=== PATIENT | male | born 1955 | race Caucasian/White ===

== ENCOUNTER 2023-11-29 12:29 | Inpatient (IN) ==
[2023-11-29 13:36] LABS: Basophils # (auto) 0.03 K/uL (0.00-0.20); Basophils % (auto) 0.5 %; Eosinophils # (auto) 0.14 K/uL (0.00-0.50); Eosinophils % (auto) 2.4 %; Hematocrit (blood only) 46.8 % (42.0-52.0); Hemoglobin 15.6 g/dl (14.0-18.0); Immature Granulocytes # (auto) 0.01 K/uL (0.01-0.20); Immature Granulocytes % (auto) 0.2 %; Lymphocytes # (auto) 1.46 K/uL (1.20-3.40); Lymphocytes % (auto) 25.1 %; Mean Corpuscular Hemoglobin 30.9 pg (25.0-34.0); Mean Corpuscular Hgb Conc 33.3 g/dL (32.0-36.0); Mean Corpuscular Volume 92.7 fL (80.0-100.0); Monocytes # (auto) 0.49 K/uL (0.11-0.59); Monocytes % (auto) 8.4 %; Neutrophils # (auto) 3.68 K/uL (1.40-6.50); Neutrophils % (auto) 63.4 %; Platelet Count 226 K/uL (130-400); RDW Coefficient of Variation 12.9 % (11.5-14.5); RDW Standard Deviation 43.7 fL (36.4-46.3); Red Blood Count 5.05 M/uL (4.70-6.10); White Blood Count 5.81 K/ul (4.8-10.8)
--- NOTE | 2023-11-29 13:49 | XRay Report ---
SINGLE VIEW CHEST CLINICAL HISTORY: Atypical chest pain. FINDINGS: 2 AP, portable, upright chest radiographs are compared to study dated 01/01/2021. The heart i s top normal for projection. There is mild bibasilar atelectasis. Scattered calcified granulomas are observed. The lungs and pleural spaces are otherwise clear. No pneumothorax is seen. The skeletal str uctures are osteopenic. Chronic deformity of the right proximal humerus is unchanged. IMPRESSION: No active disease in the chest. ACT 112: Negative or not required by law. Electronically signed by: Ashvin Aguayo M.D. 11/29/2023 1:48 PM
[2023-11-29 13:53] LABS: BUN Creatinine Ratio 14.4 (10-20); Calcium 9.7 mg/dl (8.6-10.3); Creatinine Clr Calc Pharmacy 86.5 ml/min; Est GFR (African American) 102.1 ml/min; Est GFR (Non-African American) 88.1 ml/min
[2023-11-29 14:00] LABS: Troponin I High Sensitivity 3.2 pg/ml (0-20)
[2023-11-29 14:04] LABS: D Dimer 340 ug/L FEU (0-500); Partial Thromboplastin Time 28 Seconds (21-31); Prothrombin Time 10.8 Seconds (9.0-12.0)
--- NOTE | 2023-11-29 14:32 | CT Scan Report ---
CT head/brain wo con CLINICAL HISTORY: syncope Technique: Contiguous axial CT images of the head were acquired from the base of the skull to the ashok malena without intravenous contrast administration. Images were viewed in brain, subdural and bone [facility] . Automated dose lowering techniques and/or adjustment according to patient size were utilized for this exam. Comparison: Comparison is made to CT head 10/03/2019 Findings: Areas of decreased attenuation are present in the periventricular and subcortical white matter bilate rally consistent with small vessel ischemic disease. Generalized cerebral atrophy with commensurate e nlargement of the ventricles, sulci, and cisterns is also present. There is no acute intracranial hem orrhage or evidence of acute territorial infarction. No shift of the midline structures, mass effect, or extra-axial abnormalities are shown. Atherosclerotic calcifications are present in the intracran ial segments of the internal carotid arteries. Imaged portions of the paranasal sinuses and mastoid air cells are clear. The orbits appear normal. There are no acute fractures of the calvaria or scalp swelling. Impression: No acute intracranial hemorrhage, no evidence of acute territorial infarction or other acute intracra nial disease process. ACT 112: Negative or not required by law. Electronically signed by: Edison Rick M.D. 11/29/2023 2:30 PM
--- NOTE | 2023-11-29 15:05 | Electrocardiogram Report ---
Test Reason : Blood Pressure : / mmHG Vent. Rate : 080 BPM Atrial Rate : 080 BPM P-R Int : 186 ms QRS Dur : 086 ms QT Int : 354 ms P-R-T Axes : 050 046 050 degrees QTc Int : 408 ms Normal sinus rhythm Normal ECG When compared with ECG of 01-JAN-2021 15:33, No significant change was found Confirmed by Luis Fernando Collier ([id number]) on 11/29/2023 3:05:20 PM Referred By: Confirmed By:Luis Fernando Collier
--- NOTE | 2023-11-29 18:54 | Emergency Department Note ---
History of Present Illness General Chief complaint: Dizziness Stated complaint: DIZZY/PASSING OUT/CHEST PAIN - NUMBNESS IN LEGS Time Seen by Provider: 11/29/23 13:08 History of Present Illness Provider complaint: Syncope Onset (ago): day(s) 4 Maximum Pain Intensity: 0 Associated symptoms: + chest pain, + cough, + shortness of breath and + syncope 68-year-old male presents emergency department for syncope. Patient reports that he has been having a bad cough and he has been coughing so bad since Sunday he has passed out 3 times. He reports some chest tightness and some difficulty breathing. Patient states he thinks his symptoms began after he was diagnosed with COVID in September. No recent travel. No exogenous hormone usage. No hemoptysis. No headache. No nausea vomiting or diarrhea. No melena or hematochezia. No hematuria or dysuria. Home Medications Medication Instructions Recorded Confirmed Type aspirin 81 mg tablet,delayed 81 mg PO QAM 09/22/19 11/29/23 History release vitamins A,C,C-lnjm-rzuicy 4,296 2 cap PO QAM 09/22/19 11/29/23 History mcg-226 mg-90 mg capsule (PreserVision AREDS) losartan 100 mg tablet (Cozaar) 50 mg PO QAM 01/01/21 11/29/23 History cholecalciferol (vitamin D3) 25 25 mcg PO QAM 01/05/23 11/29/23 History mcg (1,000 unit) capsule (Vitamin D3) cyanocobalamin (vitamin B-12) 50 50 mcg PO QAM 01/05/23 11/29/23 History mcg tablet (Vitamin B-12) omega-3 fatty acids 1,250 mg PO QAM 01/05/23 11/29/23 History rosuvastatin 10 mg tablet 10 mg PO QAM 01/05/23 11/29/23 History tamsulosin 0.4 mg capsule 0.4 mg PO HS 01/05/23 11/29/23 History omeprazole 20 mg capsule,delayed 20 mg PO DAILY #90 caps 01/11/23 11/29/23 Rx release cetirizine 10 mg tablet 10 mg PO QAM 11/29/23 11/29/23 History fluticasone 250 mcg-salmeterol 50 1 inh inhalation [facility] 11/29/23 11/29/23 History mcg/dose blistr powdr for inhalation Allergies Allergy/AdvReac Type Severity Reaction Status Date / Time No Known Allergies Allergy Verified 01/11/23 09:26 Past Med/Surg History Medical History History of COVID-19 11/2020, test q-care, not hosp; "couldn't get off the couch,">resolved w/exception of mucous in throat all the time History of anesthesia reaction questionable malignant hpyerthermia was told cousin had coded and revived and was told it might be malignant hyperthermia and family did not have testing. patient has had anesthesia and has not had any problems. Last procedure was with [facility] Herniated cervical disc ROM "up and down is ok, but turning side to side is difficult" Osteoarthritis GERD (gastroesophageal reflux disease) Depression Anxiety Hypertension Kidney stone hx-LITHOTRIPSY Surgical History Hx of lithotripsy Hx of colonoscopy Hx of tonsillectomy Family History Other No significant family history Social History Smoking Status: Never smoker Tobacco Type: Smokeless Tobacco (Dip or Chew) Second Hand Exposure: No; Do You Dip or Chew Tobacco: Yes (1 can/day; advised); Hx Alcohol Use: Yes Alcohol type: beer Hx Substance Use: No Preferred Language: Estonian Communication Ability: Effective Glazier Artist Required: No Beliefs That Will Affect Care: None Current Living Situation: Spouse and Family Feels Safe at Home: Yes Assistive Devices: Glasses Physical Exam Vital Signs Vital Signs - 24 hr 11/29/23 12:33 11/29/23 12:46 11/29/23 13:09 Temperature 36.1 C L Temperature Source Temporal Artery Scan Pulse Rate 83 80 Pulse Rate [Apical] Pulse Rhythm Regular Pulse Strength Normal Respiratory Rate 20 Respiratory Effort / Characteristics Non-Labored Spontaneous Respiratory Depth Normal Respiratory Pattern Regular Blood Pressure 146/93 H Blood Pressure [Left Arm] Blood Pressure Mean 110 Blood Pressure Mean [Left Arm] Blood Pressure Position Sitting Pulse Oximetry 96 Oxygen Delivery Method Room Air Room Air Sepsis Recent Fever Within 48 Hours No Sepsis New/Unexplained Change in Mental Status No Sepsis Action Taken by Nursing No Action Required 11/29/23 13:09 11/29/23 15:00 11/29/23 16:41 Temperature Temperature Source Pulse Rate 75 Pulse Rate [Apical] 96 H 72 Pulse Rhythm Pulse Strength Respiratory Rate 16 18 Respiratory Effort / Characteristics Non-Labored Respiratory Depth Normal Respiratory Pattern Blood Pressure Blood Pressure [Left Arm] 150/98 H 130/82 Blood Pressure Mean Blood Pressure Mean [Left Arm] 115 98 Blood Pressure Position Pulse Oximetry 95 99 Oxygen Delivery Method Room Air Sepsis Recent Fever Within 48 Hours Sepsis New/Unexplained Change in Mental Status Sepsis Action Taken by Nursing 11/29/23 17:00 Temperature Temperature Source Pulse Rate Pulse Rate [Apical] 77 Pulse Rhythm Pulse Strength Respiratory Rate 18 Respiratory Effort / Characteristics Respiratory Depth Normal Respiratory Pattern Blood Pressure Blood Pressure [Left Arm] 124/84 Blood Pressure Mean Blood Pressure Mean [Left Arm] 97 Blood Pressure Position Pulse Oximetry 97 Oxygen Delivery Method Sepsis Recent Fever Within 48 Hours Sepsis New/Unexplained Change in Mental Status Sepsis Action Taken by Nursing Physical Exam GENERAL: He is oriented to person, place, and time. He appears well-developed and well-nourished. He does not appear distressed. HENT: Exam performed. - Head: Normocephalic and atraumatic. - Right Ear: External ear normal. No mastoid erythema - Left Ear: External ear normal. No mastoid erythema - Mouth/Throat: The oropharynx is clear and moist. No trismus in the jaw. No dental abscesses or uvula swelling. No oropharyngeal exudate or tonsillar abscesses. EYES: Conjunctivae and EOM are normal. Pupils are equal, round, and reactive to light. Right eye exhibits no discharge. Left eye exhibits no discharge. No scleral icterus. NECK: Normal range of motion. Neck supple. No JVD present. No spinous process tenderness present. No rigidity. No tracheal deviation and normal range of motion present. CV: Normal rate, regular rhythm, normal heart sounds and intact distal pulses. There is no peripheral edema. Palpable radial pulses bue. PULM/CHEST: Effort normal and breath sounds normal. No respiratory distress. No stridor. He has no wheezes. He has no rales. ABD: The abdomen is soft. He has no distension. No mass is present. There is no tenderness. There is no rebound, no guarding, no Wang's sign and no tenderness at McBurney's point. Rovsig negative. MUSC/SKEL: Normal range of motion. There is no peripheral edema, tenderness or deformity. LYMPH: No cervical adenopathy. NEURO: He is alert and oriented to person, place, and time. He has normal strength. No cranial nerve deficit or sensory deficit. Coordination and gait normal. GCS eye subscore is 4. GCS verbal subscore is 5. GCS motor subscore is 6. Cerebellar tests wnl. SKIN: Skin is warm and dry. He is not diaphoretic. PSYCH: He has a normal mood and affect. Behavior is normal. Judgment and thought content normal. Course Course 1308: The patient was evaluated in room A4. A complete history and physical exam was performed Cardiac monitoring: An order was placed for continuous cardiac monitoring. The monitor shows a rate of 80 with sinus rhythm interpreted by me 1735: Vital signs stable. Labs and imaging within normal limits including CT of the head D-dimer troponin and chest x-ray. Patient will be admitted to the [facility] team as he states he does not feel comfortable going home with his recurrent syncopal episodes. Medical Decision Making Laboratory Data Attestation: I reviewed the patient's lab results. 11/29/23 12:45 11/29/23 12:45 Lab Results 11/29/23 Range/Units 12:45 WBC 5.81 (4.8-10.8) K/ul RBC 5.05 (4.70-6.10) M/uL Hgb 15.6 (14.0-18.0) g/dl Hct 46.8 (42.0-52.0) % MCV 92.7 (80.0-100.0) fL MCH 30.9 (25.0-34.0) pg MCHC 33.3 (32.0-36.0) g/dL RDW Std Deviation 43.7 (36.4-46.3) fL RDW Coeff of Ashu 12.9 (11.5-14.5) % Plt Count 226 (130-400) K/uL MPV 10.0 (9.4-12.4) fL Immature Gran % (Auto) 0.2 % Neut % (Auto) 63.4 % Lymph % (Auto) 25.1 % [place] % (Auto) 8.4 % Eos % (Auto) 2.4 % Baso % (Auto) 0.5 % Neut # (Auto) 3.68 (1.40-6.50) K/uL Lymph # (Auto) 1.46 (1.20-3.40) K/uL [place] # (Auto) 0.49 (0.11-0.59) K/uL Eos # (Auto) 0.14 (0.00-0.50) K/uL Baso # (Auto) 0.03 (0.00-0.20) K/uL Immature Gran # (Auto) 0.01 (0.01-0.20) K/uL PT 10.8 (9.0-12.0) Seconds INR 1.0 (0.9-1.1) APTT 28 (21-31) Seconds PTT Ratio 1.0 D-Dimer 340 (0-500) ug/L FEU Sodium 140 (136-145) mmol/L Potassium 4.0 (3.5-5.1) mmol/L Chloride 107 (98-107) mmol/L Carbon Dioxide 26 (21-32) mmol/L Anion Gap 7 (3-11) BUN 13 (6-23) mg/dl Creatinine 0.90 (0.6-1.4) mg/dl Est Cr Clr Drug Dosing 86.5 ml/min Est GFR ( Amer) 102.1 ml/min Est GFR (Non-Af Amer) 88.1 ml/min BUN/Creatinine Ratio 14.4 (10-20) Glucose 101 H (70-99(Fasting)) mg/dl Calcium 9.7 (8.6-10.3) mg/dl Troponin I High Sens 3.2 (0-20) pg/ml Lipase 34 (11-82) U/L Imaging Data Attestation: I personally reviewed and interpreted this imaging study as follows: My Impression: Chest x-ray negative. Airway clear. No pneumothorax. No consolidation. No cardiomegaly or cephalization.. No free air under the diaphragm. No fractures of the skeletal structures. Radiologist's Impression: Chest X-Ray 11/29/23 13:16 SINGLE VIEW CHEST CLINICAL HISTORY: Atypical chest pain. FINDINGS: 2 AP, portable, upright chest radiographs are compared to study dated 01/01/2021. The heart is top normal for projection. There is mild bibasilar atelectasis. Scattered calcified granulomas are observed. The lungs and pleural spaces are otherwise clear. No pneumothorax is seen. The skeletal structures are osteopenic. Chronic deformity of the right proximal humerus is unchanged. IMPRESSION: No active disease in the chest. ACT 112: Negative or not required by law. Electronically signed by: Ashvin Aguayo M.D. 11/29/2023 1:[address] 11/29/23 13:16 CT head/brain wo con CLINICAL HISTORY: syncope Technique: Contiguous axial CT images of the head were acquired from the base of the skull to the vertex without intravenous contrast administration. Images were viewed in brain, subdural and bone windows. Automated dose lowering techniques and/or adjustment according to patient size were utilized for this exam. Comparison: Comparison is made to CT head 10/03/2019 Findings: Areas of decreased attenuation are present in the periventricular and subcortical white matter bilaterally consistent with small vessel ischemic disease. Generalized cerebral atrophy with commensurate enlargement of the ventricles, sulci, and cisterns is also present. There is no acute intracranial hemorrhage or evidence of acute territorial infarction. No shift of the midline structures, mass effect, or extra-axial abnormalities are shown. Atherosclerotic calcifications are present in the intracranial segments of the internal carotid arteries. Imaged portions of the paranasal sinuses and mastoid air cells are clear. The orbits appear normal. There are no acute fractures of the calvaria or scalp swelling. Impression: No acute intracranial hemorrhage, no evidence of acute territorial infarction or other acute intracranial disease process. ACT 112: Negative or not required by law. Electronically signed by: Edison Rick M.D. 11/29/2023 2:30 PM ECG Data Attestation: I personally reviewed and interpreted this ECG as follows: Indication: + chest pain Rate (beats per minute): 80 Rhythm: + normal sinus ECG Intervals/blocks: + Normal QRS, + Normal CT and + Normal QT-c ECG ST segments: + Normal ST segments [facility] Narrative 1308: The patient was evaluated in room A4. A complete history and physical exam was performed Cardiac monitoring: An order was placed for continuous cardiac monitoring. The monitor shows a rate of 80 with sinus rhythm interpreted by me 1735: Vital signs stable. Labs and imaging within normal limits including CT of the head D-dimer troponin and chest x-ray. Patient will be admitted to the [facility] hospitalist team as he states he does not feel comfortable going home with his recurrent syncopal episodes. Impression & Plan Syncope Discharge Plan Visit Data Chief Complaint: Dizziness Stated Complaint: DIZZY/PASSING OUT/CHEST PAIN - NUMBNESS IN LEGS ED Provider: Kenrick Vargas Discharge Problem: Syncope Patient Disposition: Being Evaluated by Hospitalist Forms Stand Alone Forms: My [facility] Prescriptions Prescriptions: No Action aspirin 81 mg Tablet,Delayed Release (Dr/Ec) 81 mg PO QAM Rx Instructions: unable to verify with pharmacy 11/29/23 PreserVision AREDS [id number] Capsule 2 cap PO QAM Rx Instructions: unable to verify with pharmacy 11/29/23 Vitamin B-12 50 mcg Tablet 50 mcg PO QAM Rx Instructions: unable to verify with pharmacy 11/29/23 tamsulosin 0.4 mg Capsule 0.4 mg PO HS cholecalciferol (vitamin D3) [Vitamin D3] 25 mcg (1,000 unit) Capsule 25 mcg PO QAM Rx Instructions: unable to verify with pharmacy 11/29/23 omega-3 fatty acids Capsule 1,250 mg PO QAM Rx Instructions: unable to verify with pharmacy 11/29/23 rosuvastatin 10 mg Tablet 10 mg PO QAM omeprazole 20 mg capsule,delayed release(DR/EC) 20 mg PO DAILY Qty: 90 3RF losartan [Cozaar] 100 mg tablet 50 mg PO QAM fluticasone propion-salmeterol 250-50 mcg/dose blister with device 1 inh INHALATION [facility] cetirizine 10 mg tablet 10 mg PO QAM Referrals Referrals: Jayjay Zhong MD [Primary Care Provider] - Discharge Problem: Syncope Qualifiers: Syncope type: unspecified Qualified Code(s): R55 - Syncope and collapse
--- NOTE | 2023-11-29 20:08 | History & Physical Report ---
Date of Service November 29, 2023 Assessment & Plan (1) Syncope: (2) Chronic cough: (3) Dizziness: Plan Pt is a 68yoM with PMHx significant for HTN, HLD, BPH, Vit 12 def, DDD, MDD, Allergic rhinitis presenting with syncopal episodes after coughing fits. Chronic Cough Pt states that he has had a chronic cough that progresses to coughing fits since he had covid 3 years ago States that after he has a fit, he gets dizzy and has had 2 syncopal episodes as a result Chest XRAY with no acute changes, noted calcified granulomas Chest CTA with PE protocol pending Biofire pending Speech consult placed to r/o a possible aspiration component Started on flonase scheduled for postnasal drip as possible cause of chronic cough Hx of allergic rhinitis, continue home advair inhaler and cetirizine. Consider addition of singulair Hold home omeprazole, started on pantoprazole 40mg BID for uncontrolled GERD as another potential cause. Pt is scheduled to have outpt PFTs completed, nonsmoker but chews tobacco. Possible asthma/RAD vs COPD. Consider pulmonology follow up. Scheduled tessalon with prn Hycodan syrup ordered for acute symptomatic treatment of cough Continue to monitor Syncope Dizziness States that after he has a coughing fit, he gets dizzy and has had 2 syncopal episodes as a result States that he has had workup and no answers EKG with NSR Echo pending AM BNP pending Orthostatics Head CT with no acute changes Brain MRI pending Fall precautions Per [facility] chart review, pt on tamsulosin 0.4mg TWO capsules at dinner for BPH, will hold. Consider decreasing dose to just 0.4mg on discharge/on resumption of med. Continued telemetry and BP monitoring PT/OT- appreciate recs Continue other home meds as ordered Diet: HH DVT prophylaxis: Lovenox SQ CODE STATUS: Full code Dispo: PCU/tele History of Present Illness Chief Complaint: syncope Primary Care Provider: Jayjay Zhong MD Pt is a 68yoM with PMHx significant for HTN, HLD, BPH, Vit 12 def, DDD, MDD, Allergic rhinitis presenting with syncopal episodes after coughing fits. Hx obtained from the patient. Pt states that his symptoms started 3 years ago when he got covid. States that he has had a chronic cough and sensation in his throat that has been worked up in the past, but with no definite diagnosis. He states that he had covid again last month. Notes that the coughing fits caused him to pass out on and most recently on Nov 25 (Sunday). States that he was sitting at the dinner table with his when he started coughing and felt dizzy. States he felt his lower extremities all get numb before losing consciousness for a few minutes. States that episode was witnessed by his . Denies a smoking Hx but does note that he chews tobacco and has done so for about 50 years. Did see his pcp recently a few days ago and was started on an Advair inhaler, and sent for PFTs and CT chest which he states is scheduled but not completed yet. States that he "does not feel right in the head". States that he has had "2 cameras down my throat and they have not been able to find anything". Notes that he has a HX of GERD and that it is not controlled. States that his chest gets "hot" when he eats something "saucy" and tight. Notes he gets COON, states that he cannot walk 10 feet without getting SOB. States that he would like to know what is going on. Per ED provider, pt requesting admission for further evaluation. Allergies Allergy/AdvReac Type Severity Reaction Status Date / Time No Known Allergies Allergy Verified 01/11/23 09:26 Home Medications Medication Instructions Recorded Confirmed Type aspirin 81 mg tablet,delayed 81 mg PO QAM 09/22/19 11/29/23 History release vitamins A,C,Z-ziru-esiodx 4,296 2 cap PO QAM 09/22/19 11/29/23 History mcg-226 mg-90 mg capsule (PreserVision AREDS) losartan 100 mg tablet (Cozaar) 100 mg PO QAM 01/01/21 11/29/23 History cholecalciferol (vitamin D3) 25 25 mcg PO QAM 01/05/23 11/29/23 History mcg (1,000 unit) capsule (Vitamin D3) cyanocobalamin (vitamin B-12) 50 1,000 mcg PO QAM 01/05/23 11/29/23 History mcg tablet (Vitamin B-12) omega-3 fatty acids 1,250 mg PO QAM 01/05/23 11/29/23 History rosuvastatin 10 mg tablet 10 mg PO QAM 01/05/23 11/29/23 History tamsulosin 0.4 mg capsule 0.8 mg PO HS 01/05/23 11/29/23 History omeprazole 20 mg capsule,delayed 20 mg PO DAILY #90 caps 01/11/23 11/29/23 Rx release cetirizine 10 mg tablet 10 mg PO QAM 11/29/23 11/29/23 History fluticasone 250 mcg-salmeterol 50 1 inh inhalation [facility] 11/29/23 11/29/23 History mcg/dose blistr powdr for inhalation Past Med/Surg History Medical History History of COVID-19 11/2020, test q-care, not hosp; "couldn't get off the couch,">resolved w/exception of mucous in throat all the time History of anesthesia reaction questionable malignant hpyerthermia was told cousin had coded and revived and was told it might be malignant hyperthermia and family did not have testing. patient has had anesthesia and has not had any problems. Last procedure was with [facility] Herniated cervical disc ROM "up and down is ok, but turning side to side is difficult" Osteoarthritis GERD (gastroesophageal reflux disease) Depression Anxiety Hypertension Kidney stone hx-LITHOTRIPSY Surgical History Hx of lithotripsy Hx of colonoscopy Hx of tonsillectomy Family History Other No significant family history Social History Smoking Status: Never smoker Tobacco Type: Smokeless Tobacco (Dip or Chew) Second Hand Exposure: No; Do You Dip or Chew Tobacco: Yes (1 can/day; advised); Hx Alcohol Use: Yes Alcohol type: beer Hx Substance Use: No Preferred Language: Singaporean Communication Ability: Effective Customer Operations Manager Required: No Beliefs That Will Affect Care: None Current Living Situation: Spouse and Family Feels Safe at Home: Yes Assistive Devices: Glasses Review of Systems Review of Systems: All systems reviewed & are unremarkable except as noted in Subjective Physical Exam Physical Exam: General: Alert, oriented. No acute distress Skin: No noted rashes or bruises Psych: Appropriate mood and affect Neuro: No gross deficits HEENT: NC/AT Chest: Nontender to palpation. CV: RRR, Normal s1, s2. No murmurs appreciated Resp: Breath sounds clear bilaterally, no increased effort of breathing. No crackles/rhonchi/rales. Abdomen: Soft, nontender, nondistended. Extremities: No edema in lower extremities bilaterally. Results & Data Results & Data Vital Signs (Past 12 Hours) Vital Signs Temp Pulse Pulse Resp BP BP Pulse Ox 11/29/23 19:00 72 18 164/84 H 98 11/29/23 17:00 77 18 124/84 97 11/29/23 16:41 75 11/29/23 15:00 72 18 130/82 99 11/29/23 13:09 96 H 16 150/98 H 95 11/29/23 13:09 11/29/23 12:46 80 11/29/23 12:33 36.1 C L 83 20 146/93 H 96 O2 Del Method 11/29/23 19:00 Room Air 11/29/23 17:00 11/29/23 16:41 11/29/23 15:00 11/29/23 13:09 Room Air 11/29/23 13:09 Room Air 11/29/23 12:46 11/29/23 12:33 Room Air Diagnostic Findings Chest X-Ray 11/29/23 13:16 SINGLE VIEW CHEST CLINICAL HISTORY: Atypical chest pain. FINDINGS: 2 AP, portable, upright chest radiographs are compared to study dated 01/01/2021. The heart is top normal for projection. There is mild bibasilar atelectasis. Scattered calcified granulomas are observed. The lungs and pleural spaces are otherwise clear. No pneumothorax is seen. The skeletal structures are osteopenic. Chronic deformity of the right proximal humerus is unchanged. IMPRESSION: No active disease in the chest. ACT 112: Negative or not required by law. Electronically signed by: Ashvin Aguayo M.D. 11/29/2023 1:[address] 11/29/23 13:16 CT head/brain wo con CLINICAL HISTORY: syncope Technique: Contiguous axial CT images of the head were acquired from the base of the skull to the vertex without intravenous contrast administration. Images were viewed in brain, subdural and bone windows. Automated dose lowering techniques and/or adjustment according to patient size were utilized for this exam. Comparison: Comparison is made to CT head 10/03/2019 Findings: Areas of decreased attenuation are present in the periventricular and subcortical white matter bilaterally consistent with small vessel ischemic disease. Generalized cerebral atrophy with commensurate enlargement of the ventricles, sulci, and cisterns is also present. There is no acute intracranial hemorrhage or evidence of acute territorial infarction. No shift of the midline structures, mass effect, or extra-axial abnormalities are shown. Atherosclerotic calcifications are present in the intracranial segments of the internal carotid arteries. Imaged portions of the paranasal sinuses and mastoid air cells are clear. The orbits appear normal. There are no acute fractures of the calvaria or scalp swelling. Impression: No acute intracranial hemorrhage, no evidence of acute territorial infarction or other acute intracranial disease process. ACT 112: Negative or not required by law. Electronically signed by: Edison Rick M.D. 11/29/2023 2:30 PM (1) Syncope Syncope type: unspecified Qualified Code(s): R55 - Syncope and collapse
[2023-11-29] MEDS ORDERED: HYDROcodone/HOMATROPINE SYRUP 5MG/1.5MG 5ML UDP PO PRN (20:56)
[2023-11-29] MEDS ORDERED: ACETAMINOPHEN 500 MG TAB PO PRN (21:01)
[2023-11-29] MEDS ORDERED: ONDANSETRON INJ 2 MG/ML 2 ML VIAL IV PRN (21:01)
[2023-11-29] MEDS ORDERED: POLYETHYLENE (MIRALAX) 17 GM PACK PO PRN (21:02)
[2023-11-29] MEDS: FLUTICASONE PROPIONATE NA SPR 16 GM BTL SCH (22:07)
[2023-11-29] MEDS: BENZONATATE 100 MG CAPSULE PO SCH (22:08)
[2023-11-29] MEDS: PANTOprazole 40 MG TAB PO SCH (22:08)
[2023-11-29] MEDS: ENOXAPARIN INJ 40 MG/0.4 ML SYR SQ SCH (22:09)
[2023-11-29] MEDS ORDERED: OPTIRAY 320 125ml IV ONE (22:37)
--- NOTE | 2023-11-29 22:56 | CT Scan Report ---
Exam(s): CTA CHEST IV Amt: 117 ML OPTIRAY 320 EXAM: CT Angiography Chest With Intravenous Contrast CLINICAL HISTORY: Reason for exam: PE. TECHNIQUE: Axial computed tomographic angiography images of the chest with intravenous contrast. CTDI is 39 mGy and DLP is 651.06 mGy-cm. Automated exposure control was utilized for the study. A dose lowering technique was utilized adhering to the principles of ALARA. MIP reconstructed images were created and reviewed. COMPARISON: No relevant prior studies available. FINDINGS: LUNGS: No focal consolidation, pleural effusion, or pneumothorax. HEART: Within normal limits. VASCULATURE: No acute pulmonary embolism. THYROID: Within normal limits. MEDIASTINUM + LYMPH NODES: There are no pathologically enlarged mediastinal, hilar, or axillary lymph nodes. SUPERIOR ABDOMEN: The included portions of the superior abdomen are within normal limits. MUSCULOSKELETAL: Within normal limits. IMPRESSION: No acute pulmonary embolism. Electronically signed by: Jassi Hernández MD 11/29/23 22:55 PM
[2023-11-30 01:30] LABS: Adenovirus PCR Not Detected (NotDetected); Bordetella parapertussis PCR Not Detected (NotDetected); Bordetella pertussis PCR Not Detected (NotDetected); Chlamydia pneumoniae PCR Not Detected (NotDetected); Coronavirus 229E PCR Not Detected (NotDetected); Coronavirus CoV-2 (COVID19)PCR Not Detected (NotDetected); Coronavirus HKU1 PCR Not Detected (NotDetected); Coronavirus NL63 PCR Not Detected (NotDetected); Coronavirus OC43PCR Not Detected (NotDetected); Human Metapneumovirus PCR Not Detected (NotDetected); Influenza A PCR Not Detected (NotDetected); Influenza B PCR Not Detected (NotDetected); Mycoplasma pneumoniae PCR Not Detected (NotDetected); Parainfluenza Virus 1 PCR Not Detected (NotDetected); Parainfluenza Virus 2 PCR Not Detected (NotDetected); Parainfluenza Virus 3 PCR Not Detected (NotDetected); Parainfluenza Virus 4 PCR Not Detected (NotDetected); Respiratory Syncytial VirusPCR Not Detected (NotDetected); Rhinovirus/Enterovirus PCR Not Detected (NotDetected)
[2023-11-30] MEDS ORDERED: ZOLPIDEM TARTRATE 5 MG TAB PO STA (01:34)
--- OUTSIDE RECORDS SUMMARY | 2023-11-30 05:23 | External Medical Summary | Summary of Care ---
Author Name Unknown Organization [facility] Address [address] [place] [address] Phone [phone] Care Team Providers Care Line Servicer Name Role Phone Jayjay Zhong MD Primary Care Provide r Reason for Visit * Reason Onset Date Comments Medication Refill 10/26/2023 Encounter Details Date Type Department Care Team (Late st Contact Info) Description 10/26/2023 Refill Family Medicine [address] [phone] Jenifer Ford PA-C [address] [place] [address] [place] [address] Postnasal drip Allergies No known active allergiesdocumented as of this encounter (statuses as of 10/26/2023) Medications Medication Sig Dispensed Refills Start Date End Date Status ASPIRIN 81 MG PO TABS one tab by mouth daily 34 5 06/26/2007 Active Multiple Vitamins-Mineral s (ICAPS AREDS 2) CAPS Take by mouth. 0 Active Cyanocobalamin 1000 MCG Oral Tablet (Cyanocobalamin) Indications:B12 deficiency Take by mouth 1 Tablet in the morning. 90 Tablet 1 04/06/2022 Active Tamsulosin HCl 0.4 MG Oral Capsule (Flomax)Indicati ons:Benign prostatic hyperplasia with nocturia Take 2 Capsules by mouth daily with dinner. 180 Capsule 1 05/02/2023 Active DULoxetine HCl 60 MG Oral Capsule Delayed Release Particles (Cymbalta)Indica tions:Moderate episode of recurrent major depressive disorder (HCC),DDD (degenerative disc disease), cervical,Chronic midline low back pain without sciatica TAKE 1 CAPSULE BY MOUTH EVERY DAY 90 Capsule 2 05/24/2023 Active Rosuvastatin Calcium 10 MG Oral Tablet (Crestor)Indicat ions:Dyslipidemi a, goal LDL below 130 TAKE 1 TABLET BY MOUTH EVERY DAY 90 Tablet 3 06/17/2023 Active Losartan Potassium 100 MG Oral Tablet (Cozaar)Indicati ons:HTN, goal below 140/90 Take 1 Tablet by mouth in the morning. 0 10/02/2023 Active Madison-3 Fish Oil 1000 MG Oral Capsule (Madison-3) Take 1 Capsule by mouth in the morning and 1 Capsule before bedtime. 0 10/02/2023 Active Omeprazole 20 MG Oral Capsule Delayed Release (PriLOSEC) TAKE 1 CAPSULE BY MOUTH EVERY DAY 90 Capsule 1 10/15/2023 Active Nirmatrelvir&Rit onavir 300/100 20 x 150 MG & 10 x 100MG Oral Tablet Therapy Pack (Paxlovid (300/100)) Take 2 pink tablets of Nirmatrelvir and 1 white tablet of Ritonavir two times a day by mouth. 30 Tablet 0 10/26/2023 Active Cetirizine HCl 10 MG Oral Tablet (ZyrTEC Allergy)Indicati ons:Postnasal drip Take 1 Tablet by mouth in the morning. 30 Tablet 5 10/26/2023 Active Cetirizine HCl 10 MG Oral Tablet (ZyrTEC Allergy)Indicati ons:Postnasal drip Take 1 Tablet by mouth in the morning. 30 Tablet 5 10/02/2023 3 Discontinue d(Refill) documented as of this encounter (statuses as of 10/26/2023) Active Problems Problem Noted Date Diagnosed Date Postnasal drip 04/02/2023 History of colon polyps 07/12/2022 B12 deficiency 04/06/2022 Seasonal allergic rhinitis due to pollen 021 DDD (degenerative disc disease), cervical 2018 Dyslipidemia, goal LDL below 130 09/23/2019 Osteoarthritis of spine with radiculopathy, lumb ar region 08/03/2017 Moderate episode of recurrent major depressive d isorder 08/03/2017 Slow transit constipation 08/16/2015 Midline low back pain without sciatica 5 Benign prostatic hyperplasia 04/27/2014 Overview: ICD-10 update of inactive term HTN, goal below 140/90 04/19/2011 Cervical disc herniation 12/29/2010 Overview: C6-7 disc bulge with right lateral herniation Tobacco use disorder 02/19/2002 documented as of this encounter (statuses as of 10/26/2023) Resolved Problems Problem Noted Date Diagnosed Date Resolved Date High blood triglycerides 04/13/201303/2017 Cervicalgia 07/26/2011 08/16/2015 Benign neoplasm of colon 07/30/2007 Overview: hyperplastic polyps--repeat 10 years Dermatophytosis of groin 05/19/2002 ADJ DISORDER W/DEPRES MOOD 02/19/2002 1 DERMATOPHYTOSIS OF LEFT THUMB 02/19/2002 08/16/2015 Dermatophytosis of foot 02/19/2002 100 03/2017 Dermatophytosis of nail 02/19/2002 100 03/2017 Tinea corporis 02/19/2002 08/16/2015 Calculus of kidney 0 documented as of this encounter (statuses as of 10/26/2023) Immunizations Name Administration Dates Next Due COVID-19 mRNA, LNP-s, No Pre serve, 2-Dose Series (Preen.Me) 02/23/2021,01/31/2021 COVID-19, LNP-s, No Preserve , Ramón-sucrose, Ages 12+ (Pfizer) 01/17/2022 Covid-19, Mrna, Lnp-s, Pf, B ivalent, 30 Mcg, IM, 12 yrs and above (Preen.Me) 08/01/2022 DTaP Dipth/Tet/Acell Pertussis (Infanrix), Peds 03/29/2005 Pneumococcal Conjugate Vacci ne, 20-valent ([id number]) 07/25/2022 Seasonal Influenza, PF, 6 M & above, IM , (FluLaval or Fluzone) 08/29/2019,10/07/2018,08/03/2017 Seasonal Influenza, Quadriva lent Hd (Fluzone Hd) 10/02/2023,07/25/2022 Seasonal Influenza, Quadriva lent, No Preserve, IM 06/25/2021,08/14/2016,08/16/2015 Seasonal Influenza, Split, I IV3, With Preserve, Inj 09/30/2014,10/15/2013,07/24/2012,2010,08/19/2010,07/28/2009 TDAP (age 10 and older)(Boostrix) 08/16/2015 TDAP (age 11 and older)(Adacel) 03/29/2005 Varicella Zoster Vaccine (Adult) 12/05/2016 Zoster Vaccine Recombinant (Shingrix) 04/27/2020 ,12/25/2019 documented as of this encounter Social History Tobacco Use Types Packs/Day Years Used Date Smoking Tobacco: Never Smokeless Tobacco: Current Snuff Comments:1-11/2 a day Alcohol Use Standard Drinks/Week Comments Yes 0 (1 standard drink = 0.6 oz pur e alcohol) several beers per day PHQ-2 Answer Date Recorded PHQ-2 Score 7 06/24/2020 Sex and Gender Information Value Date Recorded Sex Assigned at Not on file Gender Identity Not on file Sexual Orientation Not on file Job Start Date Occupation Industry Not on file Not on file Not on file documented as of this encounter Miscellaneous Notes * Telephone Encounter - Fiona Rodrigues DO - 10/26/2023 3:54 PM ESTSigned Prescriptions: Disp Refills Cetirizine HCl 10 MG Oral Tablet (ZyrTEC A*30 Tab*5 Sig: Take 1 Tablet by mouth in the morning. Authorizing Provider: FIONA RODRIGUES * Telephone Encounter - Elza Azevedo CMA - 10/26/2023 1:58 PM ESTPending Prescriptions: Disp Refills Cetirizine HCl 10 MG Oral Tablet (ZyrTEC A*30 Tab*5 Sig: Take 1 Tablet by mouth in the morning. * Telephone Encounter - Amber Cardenas, GERI - 10/26/2023 11:51 AM EST Did you pend patient's preferred pharmacy and medication before forwarding?yes Pharmacy: [id number] Pending Prescriptions: Disp Refills Cetirizine HCl 10 MG Oral Tablet (ZyrTEC *30 Tab*5 Sig: Take 1 Tablet by mouth in the morning. Last Visit: 10/25/2023 (in office), Visit date not found (telemedicine) Next Visit: 04/04/2024 If no future appointments scheduled, and last appointment is greater than a year ago, please schedule patient for a follow-up appointment Last date the medication was ordered: 10.02.2023 Is this request for a controlled substance?No Urine Drug Screen:No results found for this or any previous visit. Patient Phone Numbers Labs: Lab Results Component Value Date/Time CREAT 1.0 03/22/2023 10:56 AM CREAT 0.9 06/24/2020 10:24 AM POTASSIUM 4.7 03/22/2023 10:56 AM POTASSIUM 4.3 06/24/2020 10:24 AM TSH 2.05 12/03/2018 11:18 AM LDLCALC 66 04/05/2022 09:07 AM LDLCALC 125 06/24/2020 10:24 AM LDLDIRECT 86 03/22/2023 10:56 AM LDLDIRECT NOT APPLICABLE 06/24/2020 10:24 AM LDLDIRECT 101 01/16/2011 04:30 PM ALT 38 05/10/2023 10:11 AM ALT 34 06/24/2020 10:24 AM HGBA1C 5.8 08/22/2010 10:27 AM documented in this encounter Plan of Treatment Upcoming Encounters Date Type Department Care Team (Late st Contact Info) Description 04/04/2024 1:40 PM EDT Office Visit Family [address] [place] [phone] Jayjay Zhong MD [address] [place] [address] [place] [id number] Scheduled Procedures Name Priority Associated Diagnoses Date/Ti me COLONOSCOPY FLEXIBLE PROXIMA L DIAGNOSTIC Recall History of colonic polyps Health Maintenance Due Date Last Done Comments Depression Screening 06/24/2021 06/24/2020 COVID-19 Vaccine ( season) 2023 08/01/2022, 01/17/2022, 02/23/2021, Additional history exists GFR 03/22/2024 03/22/2023, 060 05/2022, 03/11/2021, Additional history exists DTaP,Tdap,and Td Vaccines (4 - Td or Tdap) 08/16/2025 08/16/2015, 03/29/2005, 03/29/2005, Additional history exists Albumin/Creatinine Ratio 03/22/2026 03/22/2023 Diabetes Screening 03/22/2026 03/22/2023, 0 04/05/2022, 03/11/2021, Additional history exists COLONOSCOPY-EVERY 5 YRS AGES 18-100 01/12/2028 01/11/2023, 08/08/2017, 08/08/2017, Additional history exists Lipid Panel 03/22/2028 03/22/2023, 06/0 05/2022, 05/16/2021, Additional history exists Zoster Vaccines Completed 04/27/2020, 11/30, 12/05/2016 Pneumococcal Vaccine: 65+ Years Completed 07/25/2022 Influenza Vaccine (FLU shot) Completed 02/2023, 07/25/2022, 06/25/2021, Additional history exists GARDASIL-HPV IMMUNIZATION SERIES Aged Out No longer eligible based on patient's age to complete this topic Hepatitis B Aged Out No longer eligi ble based on patient's age to complete this topic MENINGOCOCCAL (MENACTRA/MENVEO) Aged Out No longer eligible based on patient's age to complete this topic documented as of this encounter Medical Devices Not on filedocumented as of this encounter Visit Diagnoses Diagnosis Postnasal drip documented in this encounter Additional Health Concerns Infection Onset Date Last Indicated Resolved Time COVID-19 (confirmed) 10/25/2023 10/25/2023 documented as of this encounter Care Teams Line Servicer Relationship Specialty Start Date End Date Jayjay Zhong MD [address] [place] [address] [place] [phone] PCP - General Family Medicine 08/16/15 documented as of this encounter
--- OUTSIDE RECORDS SUMMARY | 2023-11-30 05:23 | External Medical Summary | Summary of Care ---
Author Name Unknown Organization [facility] Address [address] [place] [address] Phone [phone] Care Team Providers Care Agricultural Engineer Name Role Phone Hemant Zhong MD Primary Care Provide r Reason for Visit * Reason Comments eRx-Medication Refill Encounter Details Date Type Department Care Team ([facility] st Contact Info) Description 10/14/2023 Refill Family Medicine [address] [phone] Hemant Zhong MD [address] [place] [address] [place] [address] Gastroesophageal reflux disease Allergies No known active allergiesdocumented as of this encounter (statuses as of 10/15/2023) Medications Medication Sig Dispensed Refills Start Date End Date Status ASPIRIN 81 MG PO TABS one tab by mouth daily 34 5 06/26/2007 Active Multiple Vitamins-Minerals (ICAPS AREDS 2) CAPS Take by mouth. 0 Active Cyanocobalamin 1000 MCG Oral Tablet (Cyanocobalamin)I ndications:B12 deficiency Take by mouth 1 Tablet in the morning. 90 Tablet 1 04/06/2022 Active Tamsulosin HCl 0.4 MG Oral Capsule (Flomax)Indicatio ns:Benign prostatic hyperplasia with nocturia Take 2 Capsules by mouth daily with dinner. 180 Capsule 1 05/02/2023 Active DULoxetine HCl 60 MG Oral Capsule Delayed Release Particles (Cymbalta)Indicat ions:Moderate episode of recurrent major depressive disorder (HCC),DDD (degenerative disc disease), cervical,Chronic midline low back pain without sciatica TAKE 1 CAPSULE BY MOUTH EVERY DAY 90 Capsule 2 05/24/2023 Active Rosuvastatin Calcium 10 MG Oral Tablet (Crestor)Indicati ons:Dyslipidemia, goal LDL below 130 TAKE 1 TABLET BY MOUTH EVERY DAY 90 Tablet 3 06/17/2023 Active Losartan Potassium 100 MG Oral Tablet (Cozaar)Indicatio ns:HTN, goal below 140/90 Take 1 Tablet by mouth in the morning. 0 10/02/2023 Active [place]-3 Fish Oil 1000 MG Oral Capsule ([place]-3) Take 1 Capsule by mouth in the morning and 1 Capsule before bedtime. 0 10/02/2023 Active Cetirizine HCl 10 MG Oral Tablet (ZyrTEC Allergy)Indicatio ns:Postnasal drip Take 1 Tablet by mouth in the morning. 30 Tablet 5 10/02/2023 Active Omeprazole 20 MG Oral Capsule Delayed Release (PriLOSEC) TAKE 1 CAPSULE BY MOUTH EVERY DAY 90 Capsule 1 10/15/2023 Active Omeprazole 20 MG Oral Capsule Delayed Release (PriLOSEC)Indicat ions:Gastroesopha geal reflux disease TAKE 1 CAPSULE BY MOUTH DAILY 1 HOUR BEFORE THE FIRST MEAL OF THE DAY 90 Capsule 1 12/30/2021 3 Discontinued documented as of this encounter (statuses as of 10/15/2023) Active Problems Problem Noted Date Diagnosed Date [...] as of this encounter (statuses as of 10/15/2023) Resolved Problems Problem Noted Date Diagnosed Date Resolved Date High blood triglycerides 04/13/201303/2017 Cervicalgia 07/26/2011 08/16/2015 Benign neoplasm of colon 07/30/2007 Overview: hyperplastic polyps--repeat 10 years Dermatophytosis of groin 05/19/2002 ADJ DISORDER W/DEPRES MOOD 02/19/2002 1 DERMATOPHYTOSIS OF LEFT THUMB 02/19/2002 08/16/2015 Dermatophytosis of foot 02/19/200203/2017 Dermatophytosis of nail 02/19/200203/2017 Tinea corporis 02/19/2002 08/16/2015 Calculus of kidney documented as of this encounter (statuses as of 10/15/2023) Immunizations Name Administration Dates Next Due COVID-19 mRNA, LNP-s, No Pre serve, 2-Dose Series ([facility]) 02/23/2021,01/31/2021 COVID-19, LNP-s, No Preserve , Ramón-sucrose, Ages 12+ (Pfizer) 01/17/2022 Covid-19, Mrna, Lnp-s, Pf, B ivalent, 30 Mcg, IM, 12 yrs and above ([facility]) 08/01/2022 DTaP Dipth/Tet/Acell Pertussis (Infanrix), Peds 03/29/2005 Pneumococcal Conjugate Vacci ne, 20-valent ([id number]) 07/25/2022 Seasonal Influenza, PF, 6 M & [...] encounter Miscellaneous Notes * Telephone Encounter - Sean Valdez [facility] - 10/15/2023 3:55 PM ESTSigned Prescriptions: Disp Refills Omeprazole 20 MG Oral Capsule Delayed Rele*90 Cap*1 Sig: TAKE 1 CAPSULE BY MOUTH EVERY DAYAuthorizing Provider: HEMANT ZHONG User: SEAN VALDEZ- * Telephone Encounter - Blanche Pack [facility] - 10/15/2023 3:43 PM ESTPending Prescriptions: Disp Refills Omeprazole 20 MG Oral Capsule Delayed Rele*90 Cap*3 Sig: TAKE 1CAPSULE BY MOUTH EVERY DAY documented in this encounter Plan of Treatment Upcoming Encounters Date Type Department Care Team (Late st Contact Info) Description 04/04/2024 1:40 PM EDT Office Visit Family Medicine [address] [place] [phone] Hemant Zhong MD [address] [place] [address] [place] [address] Scheduled Procedures Name Priority Associated Diagnoses Date/Ti me COLONOSCOPY FLEXIBLE PROXIMA L DIAGNOSTIC Recall History of colonic polyps Health Maintenance Due Date Last Done Comments Depression Screening 06/24/2021 06/24/2020 COVID-19 Vaccine (2022- season) 2023 08/01/2022, 01/17/2022, 02/23/2021, Additional history exists GFR 03/22/2024 03/22/2023, 06/0 05/2022, 03/11/2021, Additional history exists DTaP,Tdap,and Td [...] as of this encounter Visit Diagnoses Diagnosis Gastroesophageal reflux disease Esophageal reflux documented in this encounter Care Teams Agricultural Engineer Relationship Specialty Start Date End Date Hemant Zhong MD [address] [place] [address] [place] [phone] PCP - General Family Medicine 08/16/15 documented as of this encounter
--- OUTSIDE RECORDS SUMMARY | 2023-11-30 05:23 | External Medical Summary | Summary of Care ---
Author Name Unknown Organization [facility] Address [address] [place] [address] Phone [phone] Care Team Providers Care Director Trading Name Role Phone Jayjay Zhong MD Primary Care Provide r Reason for Visit * Reason Onset Date Comments Re-Check Medication Administration 10/02/2023 Flu an d/or Pneumo Inj Encounter Details Date Type Department Care Team ([facility] Contact Info) Description 10/02/2023 3:00 PM EST Office Visit Family Medicine [address] [place] [phone] Jenifer Ford PA-C [address] [place] [address] [place] [phone] Need for prophylactic vaccination and inoculation against influenza*; HTN, goal below 140/90; Moderate episode of recurrent major depressive disorder (HCC); Benign prostatic hyperplasia with nocturia; Cervical disc herniation; Dyslipidemia, goal LDL below 130; Postnasal drip Allergies No known active allergiesdocumented as of this encounter (statuses as of 10/02/2023) Medications Medication Sig Dispensed Refills Start Date End Date Status ASPIRIN 81 MG PO TABS one tab by mouth daily 34 5 06/26/2007 Active Multiple Vitamins-Minerals (ICAPS AREDS 2) CAPS Take by mouth. 0 Active Omeprazole 20 MG Oral Capsule Delayed Release (PriLOSEC)Indicati ons:Gastroesophage al reflux disease TAKE 1 CAPSULE BY MOUTH DAILY 1 HOUR BEFORE THE FIRST MEAL OF THE DAY 90 Capsule 1 12/30/2021 Active Cyanocobalamin 1000 MCG Oral Tablet (Cyanocobalamin)In dications:B12 deficiency Take by mouth 1 Tablet in the morning. 90 Tablet 1 04/06/2022 Active Tamsulosin HCl 0.4 MG Oral Capsule (Flomax)Indication s:Benign prostatic hyperplasia with nocturia Take 2 Capsules by mouth daily with dinner. 180 Capsule 1 05/02/2023 Active DULoxetine HCl 60 MG Oral Capsule Delayed Release Particles (Cymbalta)Indicati ons:Moderate episode of recurrent major depressive disorder (HCC),DDD (degenerative disc disease), cervical,Chronic midline low back pain without sciatica TAKE 1 CAPSULE BY MOUTH EVERY DAY 90 Capsule 2 05/24/2023 Active Rosuvastatin Calcium 10 MG Oral Tablet (Crestor)Indicatio ns:Dyslipidemia, goal LDL below 130 TAKE 1 TABLET BY MOUTH EVERY DAY 90 Tablet 3 06/17/2023 Active Losartan Potassium 100 MG Oral Tablet (Cozaar)Indication s:HTN, goal below 140/90 Take 1 Tablet by mouth in the morning. 0 10/02/2023 Active [place]-3 Fish Oil 1000 MG Oral Capsule ([place]-3) Take 1 Capsule by mouth in the morning and 1 Capsule before bedtime. 0 10/02/2023 Active Cetirizine HCl 10 MG Oral Tablet (ZyrTEC Allergy)Indication s:Postnasal drip Take 1 Tablet by mouth in the morning. 30 Tablet 5 10/02/2023 Active Azelastine HCl 137 MCG/SPRAY Nasal SolutionIndication s:Seasonal allergic rhinitis due to pollen Administer 2 Sprays into each nostril in the morning. 30 mL 5 04/02/2023 3 Discontinue d(Patient preference/ discontinua tion) linaCLOtide 145 MCG Oral Capsule (Linzess)Indicatio ns:Slow transit constipation Take 1 Capsule by mouth daily before breakfast. 90 Capsule 1 04/02/2023 3 Discontinue d(Patient preference/ discontinua tion) Terbinafine HCl 250 MG Oral TabletIndications: Onychomycosis Take 1 Tablet by mouth in the morning. for toenail fungus. 84 Tablet 0 04/02/2023 3 Discontinue d(Patient preference/ discontinua tion) Losartan Potassium 100 MG Oral Tablet (Cozaar)Indication s:HTN, goal below 140/90 TAKE 1/2 TABLET BY MOUTH EVERY DAY 45 Tablet 3 06/17/2023 3 Discontinue d(Refill) documented as of this encounter (statuses as of 10/02/2023) Active Problems Problem Noted Date Diagnosed Date [...] as of this encounter (statuses as of 10/02/2023) Resolved Problems Problem Noted Date Diagnosed Date [...] as of this encounter (statuses as of 10/02/2023) Immunizations Name Administration Dates Next Due COVID-19 mRNA, LNP-s, No Pre serve, 2-Dose Series (Pfizer) 02/23/2021,01/31/2021 COVID-19, LNP-s, No Preserve , Ramón-sucrose, Ages 12+ (Pfizer) 01/17/2022 Covid-19, Mrna, Lnp-s, Pf, B ivalent, 30 Mcg, IM, 12 yrs and above (Pfizer) 08/01/2022 DTaP Dipth/Tet/Acell Pertussis (Infanrix), Peds 03/29/2005 Pneumococcal Conjugate Vacci ne, 20-valent ([id number]) 07/25/2022 SEASONAL INFLUENZA, PF, 6 M & Above, IM , (FLULAVAL or FLUZONE) 08/29/2019,10/07/2018,08/03/2017 Seasonal Influenza, Quadriva lent Hd (Fluzone [...] on file documented as of this encounter Last Filed Vital Signs Vital Sign Reading Time Taken Comments Blood Pressure 130/70 10/02/2023 2:50 PM EST Pulse 60 10/02/2023 2:50 PM EST Temperature 36.4 C (97.6 F) 10/02/2023 2:50 PM ES T Respiratory Rate 16 10/02/2023 2:50 PM EST Oxygen Saturation - - Inhaled Oxygen Concentration - - Weight 86.6 kg (191 lb) 10/02/2023 2:50 PM EST Height 175.3 cm (5' 9") 10/02/2023 2:50 PM EST Body Mass Index 28.21 10/02/2023 2:50 PM EST documented in this encounter Progress Notes * Jenifer Ford PA-C - 10/02/2023 2:57 PM EST Nursing Notes: Joy Santillan RN 10/02/23 [id number] Sign at exiting of workspace 6 mo check up. Pt continues to get a lot of mucous in his throat, had used azasteline spray, but ithas not helped. He has had Endocsocpies done. This started after he had COVID 3 years ago Pt here today for recheck. Pt with PMH of dyslipidemia, HTN, BPH, chronic neck pain, depression, PND. Pt has had ongoing issues with post nasal drip for the past 3 years, ever since having covid. He has had EGD which was normal. He has been using azelastine with no relief. He has tried some OTC meds but isn't sure what he's tried. He was taking benadryl with little relief. Pt has no other issues at this time. Review of patient's allergies indicates: No Known Allergies Current Outpatient Medications Medication Sig Dispense Refill ASPIRIN 81 MG PO TABS one tab by mouth daily 34 5 Multiple Vitamins-Minerals (ICAPS AREDS 2) CAPS Take by mouth. Omeprazole 20 MG Oral Capsule Delayed Release (PriLOSEC) TAKE 1 CAPSULE BY MOUTH DAILY 1 HOUR BEFORE THE FIRST MEAL OF THE DAY 90 Capsule 1 Cyanocobalamin 1000 MCG Oral Tablet (Cyanocobalamin) Take by mouth 1 Tablet in the morning. 90 Tablet 1 Tamsulosin HCl 0.4 MG Oral Capsule (Flomax) Take 2 Capsules by mouth daily with dinner. 180 Capsule1 DULoxetine HCl 60 MG Oral Capsule Delayed Release Particles (Cymbalta) TAKE 1 CAPSULE BY MOUTH EVERY DAY 90 Capsule 2 Rosuvastatin Calcium 10 MG Oral Tablet (Crestor) TAKE 1 TABLET BY MOUTH EVERY DAY 90 Tablet 3 Losartan Potassium 100 MG Oral Tablet (Cozaar) Take 1 Tablet by mouth in the morning. [place]-3 Fish Oil 1000 MG Oral Capsule ([place]-3) Take 1 Capsule by mouth in the morning and 1 Capsule before bedtime. No current facility-administered medications for this visit. Past Medical History: Diagnosis Date Benign neoplasm of colon 07/30/07 hyperplastic polyps--repeat 10 years BPH (benign prostatic hypertrophy) 04/27/2014 Calculus of kidney Cervical disc herniation 12/29/10 C6-7 disc bulge with right lateral herniation Dermatophytosis of groin Dermatophytosis of nail Tinea corporis Social History Socioeconomic History Marital status: Spouse name: Not on file Number of children: Not on file Years of education: Not on file Highest education level: Not on file Occupational History Not on file Tobacco Use Smoking status: Never Smokeless tobacco: Current Types: Snuff Tobacco comments: a day Vaping Use Vaping Use: Never used Substance and Sexual Activity Alcohol use: Yes Comment: several beers per day Drug use: No Sexual activity: Yes Partners: Female Other Topics Concern Not on file Social History Narrative Not on file Social Determinants of Health Financial Resource Strain: Not on file Food Insecurity: Not on file Transportation Needs: Not on file Physical Activity: Not on file Stress: Not on file Social Connections: Not on file Intimate Partner Violence: Not on file Housing Stability: Not on file O:Blood pressure 130/70, pulse 60, temperature 36.4 C (97.6 F), resp. rate 16, height 1.753 m (5' 9"), weight 86.6 kg (191 lb). GENERAL: alert, healthy, and no distress NECK: supple, no adenopathy, no bruits, thyroid normal size, non-tender, without nodularity EYES: PERRLA, conjunctiva are pink and non-injected, sclera clear EARS: External ears normal, Canals clear, TM's Normal NOSE: no mucosal erythema, no mucosal edema, no purulent discharge OROPHARYNX: no exudate, no erythema, lips, buccal mucosa, and tongue normal, and mucous membranes are moist HEART: regular rate & rhythm, no murmur, and no gallops LUNGS: chest symmetric with normal AP diameter, no chest deformities noted, no chest wall tenderness, lungs clear to auscultation ABDOMEN: abdomen soft, non-tender, normal bowel sounds, and no masses or organomegaly A:Need for prophylactic vaccination and inoculation against influenza (Primary) - INFLUENZA VACC, QUAD, HIGH DOSE (FLUZONE HD) HTN, goal below 140/90 Moderate episode of recurrent major depressive disorder (HCC) Benign prostatic hyperplasia with nocturia Cervical disc herniation Dyslipidemia, goal LDL below 130 Postnasal drip - Cetirizine HCl 10 MG Oral Tablet (ZyrTEC Allergy); Take 1 Tablet by mouth in the morning. Try zyrtec. Any questions/problems, please call. If anything changes, worsens, develops new sx, please call [facility]. Follow Up: Return if symptoms worsen or fail to improve. Jenifer Ford PA-C * Joy Santillan RN - 10/02/2023 2:56 PM EST PRE - ADMINISTRATION DOCUMENTATION Are you experiencing any cold symptoms or fever? No Have you had Guillain-Covelo Syndrome (an illness that causes paralysis) within the last 6 weeks? No Have you had the flu shot in the past? YES Have you ever had a reaction to the flu shot? No Joy Santillan RN, 10/02/2023 2:56 PM Immunization Administration Documentation Time Out Procedure Performed: Yes Patient Identified (Ask Name/Date of ): Yes Does the patient have a fever greater than 101 degrees today? No Patient allergic to latex? No C Stock: No Immunization(s) verified: Yes, Immunization Name: Flu, VIS Sheet(s) given: Yes Verified Side and Site: Yes Verified Shot(s) with Parent(s)/Patient: Yes documented in this encounter Nursing Notes * Joy Santillan RN - 10/02/2023 2:50 PM EST 6 mo check up. Pt continues to get a lot of mucous in his throat, had used azasteline spray, but ithas not helped. He has had Endocsocpies done. This started after he had COVID 3 years ago documented in this encounter Plan of Treatment Upcoming Encounters Date Type Department Care Team (Late st Contact Info) Description 04/04/2024 1:40 PM EDT Office Visit Family Medicine [address] [place] [phone] Jayjay Zhong MD [address] [place] [address] [place] [address] Scheduled Procedures Name Priority [...] as of this encounter Visit Diagnoses Diagnosis Need for prophylactic vaccination and inoculation against influenza- Primary HTN, goal below 140/90 Unspecified essential hypertension Moderate episode of recurrent major depressive disorder (HCC) Benign prostatic hyperplasia with nocturia Cervical disc herniation Displacement of cervical intervertebral disc without myelopathy Dyslipidemia, goal LDL below 130 Other and unspecified hyperlipidemia Postnasal drip documented in this encounter Care Teams Director Trading Relationship Specialty Start Date End Date Jayjay Zhong MD [address] [place] [address] [place] [id number] PCP - General Family Medicine 08/16/15 documented as of this encounter
--- OUTSIDE RECORDS SUMMARY | 2023-11-30 05:23 | External Medical Summary | Summary of Care ---
Author Name Unknown Organization [facility] Address [address] [place] [address] Phone [phone] Care Team Providers Care Uniform Room Attendant Name Role Phone Jayjay Zhong MD Primary Care Provide r Reason for Visit * Reason Onset Date Comments Test Results 10/26/2023 Encounter Details Date Type Department Care Team ([facility] st Contact Info) Description 10/26/2023 Telephone Family Medicine [address] [phone] Joseph Lopes MD [address] [place] [address] [place] [id number] Test Results Allergies No known active allergiesdocumented as of this encounter (statuses as of 10/26/2023) Medications Medication Sig Dispensed Refills Start Date End Date Status ASPIRIN 81 MG PO TABS one tab by mouth daily 34 5 06/26/2007 Active Multiple Vitamins-Minerals (ICAPS AREDS 2) CAPS Take by mouth. 0 Active Cyanocobalamin 1000 MCG Oral Tablet (Cyanocobalamin)In [...] mouth in the morning. 0 10/02/2023 Active [place]-3 Fish Oil 1000 MG Oral Capsule ([place]-3) Take 1 Capsule by mouth in the morning and 1 Capsule before bedtime. 0 10/02/2023 Active Cetirizine HCl 10 MG Oral Tablet (ZyrTEC Allergy)Indication s:Postnasal drip Take 1 Tablet by mouth in the morning. 30 Tablet 5 10/02/2023 Active Omeprazole 20 MG Oral Capsule Delayed Release (PriLOSEC) TAKE 1 CAPSULE BY MOUTH EVERY DAY 90 Capsule 1 10/15/2023 Active Nirmatrelvir&Riton avir 300/100 20 x 150 MG & 10 x 100MG Oral Tablet Therapy Pack (Paxlovid (300/100)) Take 2 pink tablets of Nirmatrelvir and 1 white tablet of Ritonavir two times a day by mouth. 30 Tablet 0 10/26/2023 Active documented as of this encounter (statuses as [...] mRNA, LNP-s, No Pre serve, 2-Dose Series (Pulsant) 02/23/2021,01/31/2021 COVID-19, LNP-s, No Preserve , Ramón-sucrose, Ages 12+ (Pfizer) 01/17/2022 Covid-19, Mrna, Lnp-s, Pf, B ivalent, 30 Mcg, IM, 12 yrs and above (Pulsant) 08/01/2022 DTaP Dipth/Tet/Acell Pertussis (Infanrix), Peds 03/29/2005 Pneumococcal Conjugate Vacci ne, 20-valent ([id number]) 07/25/2022 Seasonal Influenza, PF, 6 M & above, IM , (FluLaval or Fluzone) 08/29/2019,10/07/2018,08/03/2017 Seasonal Influenza, Quadriva lent Hd (Fluzone Hd) 10/02/2023,07/25/2022 Seasonal Influenza, Quadriva lent, No Preserve, IM 06/25/2021,08/14/2016,08/16/2015 Seasonal Influenza, Split, I IV3, With Preserve, Inj 09/30/2014,10/15/2013,07/24/2012,2010,08/19/2010,07/28/2009 TD - Tetanus/Diptheria (ADULT) 09/06/1999 TDAP (age 10 and older)(Boostrix) 08/16/2015 TDAP (age 11 and older)(Adacel) 03/29/2005 Varicella Zoster Vaccine (Adult) 12/05/2016 Zoster Vaccine Recombinant (Shingrix) 04/27/2020 ,12/25/2019 documented as of this encounter Social History Tobacco Use Types Packs/Day Years Used Date Smoking Tobacco: Never Smokeless Tobacco: Current Snuff Comments:1-08/30 a day Alcohol Use Standard Drinks/Week Comments [...] encounter Miscellaneous Notes * Telephone Encounter - Elza Azevedo CMA - 10/26/2023 2:18 PM EST I called and let the patient know. He expressed understanding. He will come for lab work. * Telephone Encounter - Joseph Lopes MD - 10/26/2023 11:39 AM EST Please call the pt - I called 2x: no answer Your COVID test is positive I sent paxlovid to your pharmacy Please hold crestor while taking the paxlovid I would like to get CMP in 10 days to check your kidney and liver function documented in this encounter Plan of Treatment Upcoming Encounters Date Type Department Care Team (Late st Contact Info) Description 04/04/2024 1:40 PM EDT Office Visit [address] [phone] Jayjay Zhong MD [address] [place] [address] [place] [address] Scheduled Orders Name Type Priority Associated Diagnoses Orde r Schedule COMPREHENSIVE METABOLIC PANEL Lab Routine COVID-19 Expected: 11/02/2023 (Approximate), Expires: 10/25/2024 Scheduled Procedures Name Priority Associated Diagnoses Date/Ti me COLONOSCOPY FLEXIBLE PROXIMA L DIAGNOSTIC Recall History of colonic polyps Health Maintenance Due Date Last Done Comments Depression Screening 06/24/2021 06/24/2020 COVID-19 Vaccine ( season) 2023 08/01/2022, 01/17/2022, 02/23/2021, Additional history exists GFR 03/22/2024 03/22/2023, 0 05/2022, 03/11/2021, Additional history exists DTaP,Tdap,and Td Vaccines (4 - Td or Tdap) 08/16/2025 08/16/2015, 03/29/2005, 03/29/2005, Additional history exists Albumin/Creatinine Ratio 03/22/2026 03/22/2023 Diabetes Screening 03/22/2026 03/22/2023, 0 04/05/2022, 03/11/2021, Additional history exists COLONOSCOPY-EVERY 5 YRS AGES 18-100 01/12/2028 01/11/2023, 08/08/2017, 08/08/2017, Additional history exists Lipid Panel 03/22/2028 03/22/2023, 060 05/2022, 05/16/2021, Additional history exists Zoster Vaccines [...] as of this encounter Visit Diagnoses Diagnosis COVID-19- Primary documented in this encounter Additional Health Concerns Infection Onset Date Last Indicated Resolved Time COVID-19 (confirmed) 10/25/2023 10/25/2023 documented as of this encounter Care Teams Uniform Room Attendant Relationship Specialty Start Date End Date Jayjay Zhong MD [address] [place] [address] [place] [phone] PCP - General Family Medicine 08/16/15 documented as of this encounter
--- OUTSIDE RECORDS SUMMARY | 2023-11-30 05:23 | External Medical Summary | Summary of Care ---
Author Name Unknown Organization [facility] Address [address] [place] [address] Phone [phone] Care Team Providers Care Bond Analyst Name Role Phone Jayjay Zhong MD Primary Care Provide r Reason for Referral * Precert (Within 10 days (routine)) - Pending Review Specialty Diagnoses / Procedures Referred By Mary t Referred To Contact Radiology Diagnoses Chronic cough Procedures CT CHEST W WO CONTRAST Jenifer Ford PA-C [address] [place] [address] [place] [address] Referral ID Status Reason Start Date Expiration Date V isits Requested Visits Authorized [id number] Pending Review 11/27/2023 999 999 Reason for Visit * Reason Comments Acute Encounter Details Date Type Department Care Team ([facility] Contact Info) Description 11/27/2023 1:40 PM EST Office Visit Family Medicine [address] [place] [phone] Jenifer Ford PA-C [address] [place] [address] [place] [id number] Chronic cough* Allergies No known active allergiesdocumented as of this encounter (statuses as of 11/27/2023) Medications Medication Sig Dispensed Refills Start Date [...] with dinner. 180 Capsule 1 05/02/2023 Active Rosuvastatin Calcium 10 MG Oral Tablet (Crestor)Indicat ions:Dyslipidemi a, goal LDL below 130 TAKE 1 TABLET BY MOUTH EVERY DAY 90 Tablet 3 06/17/2023 Active Losartan Potassium 100 MG Oral Tablet (Cozaar)Indicati ons:HTN, goal below 140/90 Take 1 Tablet by mouth in the morning. 0 10/02/2023 Active [place]-3 Fish Oil 1000 MG Oral Capsule (Laredo-3) Take 1 Capsule by mouth in the morning and 1 Capsule before bedtime. 0 10/02/2023 Active Omeprazole 20 MG Oral Capsule Delayed Release (PriLOSEC) TAKE 1 CAPSULE BY MOUTH EVERY DAY 90 Capsule 1 10/15/2023 Active Fluticasone-Salm eterol 250-50 MCG/ACT Inhalation Aerosol Powder Breath Activated (Advair Diskus)Indicatio ns:Chronic cough Inhale 1 Puff by mouth in the morning and 1 Puff before bedtime. 1 Each 5 11/27/2023 Active DULoxetine HCl 60 MG Oral Capsule Delayed Release Particles (Cymbalta)Indica tions:Moderate episode of recurrent major depressive disorder (HCC),DDD (degenerative disc disease), cervical,Chronic midline low back pain without sciatica TAKE 1 CAPSULE BY MOUTH EVERY DAY 90 Capsule 2 05/24/2023 4 Discontinue d(Patient preference/ discontinua tion) Nirmatrelvir&Rit onavir 300/100 20 x 150 MG & 10 x 100MG Oral Tablet Therapy Pack (Paxlovid (300/100)) Take 2 pink tablets of Nirmatrelvir and 1 white tablet of Ritonavir two times a day by mouth. 30 Tablet 0 10/26/2023 4 Discontinue d(Patient preference/ discontinua tion) Cetirizine HCl 10 MG Oral Tablet (ZyrTEC Allergy)Indicati ons:Postnasal drip Take 1 Tablet by mouth in the morning. 30 Tablet 5 10/26/2023 4 Discontinue d(Patient preference/ discontinua tion) Hospital, Clinic, or Other Facility Administered Medication Ordered Dose Route Frequency Start Date End Date Status Albuterol Sulfate (Proventil) (2.5 MG/3ML) 0.083% inhalation solution 2.5 mgIndications:Chronic cough 2.5 mg NEBULIZER ONCE PRN 11/27/2023 11/26/2024 Active documented as of this encounter (statuses as of 11/27/2023) Active Problems Problem Noted Date Diagnosed Date [...] as of this encounter (statuses as of 11/27/2023) Resolved Problems Problem Noted Date Diagnosed Date [...] as of this encounter (statuses as of 11/27/2023) Immunizations Name Administration Dates Next Due COVID-19 mRNA, LNP-s, No Pre serve, 2-Dose Series (Pfizer) 02/23/2021,01/31/2021 COVID-19, LNP-s, No Preserve , Ramón-sucrose, Ages 12+ (Pfizer) 01/17/2022 Covid-19, Mrna, Lnp-s, Pf, B ivalent, 30 Mcg, IM, 12 yrs and above (Pfizer) 08/01/2022 DTaP Dipth/Tet/Acell Pertussis (Infanrix), Peds 03/29/2005 Pneumococcal Conjugate Vacci ne, 20-valent ([id number]) 07/25/2022 Seasonal Influenza, PF, 6 M & [...] Sign Reading Time Taken Comments Blood Pressure 138/78 11/27/2023 1:26 PM EST Pulse 68 11/27/2023 1:26 PM EST Temperature 36.7 C (98 F) 11/27/2023 1:26 PM EST Respiratory Rate 16 11/27/2023 1:26 PM EST Oxygen Saturation - - Inhaled Oxygen Concentration - - Weight 89.8 kg (198 lb) 11/27/2023 1:26 PM EST Height 175.3 cm (5' 9") 11/27/2023 1:26 PM EST Body Mass Index 29.24 11/27/2023 1:26 PM EST documented in this encounter Progress Notes * Jenifer Ford PA-C - 11/27/2023 1:41 PM EST Nursing Notes: Joy Santillan RN 11/27/23 1331 Sign at exiting of workspace Acute visit for cough, pt has had this for 3 years, since having covid, he has seen GI for this. Ptstates he coughs so much he will get dizzy and pass out He quit using the zyrtec, mucinex and flonase, states they don't help Pt here today with ongoing dry cough since having covid, 3 years ago. It is getting worse. He feelslike he has a lot of post nasal drip, he has tried numerous OTC allergy meds with no relief. Pt does get some SOB. Pt denies fever, chills, chest pain, wheezing. Pt has tried albuterol inhaler. Pt has hx chest xray but last one was 2 years ago. Pt states that he cough s so hard that he gets dizzy and passes out. Pt denies sputum production, nasal/head congestion. Review of patient's allergies indicates: No Known Allergies Current Outpatient Medications Medication Sig Dispense Refill ASPIRIN 81 MG PO TABS one tab by mouth daily 34 5 Multiple Vitamins-Minerals (ICAPS AREDS 2) CAPS Take by mouth. Cyanocobalamin 1000 MCG Oral Tablet (Cyanocobalamin) Take by mouth 1 Tablet in the morning. 90 Tablet 1 Tamsulosin HCl 0.4 MG Oral Capsule (Flomax) Take 2 Capsules by mouth daily with dinner. 180 Capsule1 Rosuvastatin Calcium 10 MG Oral Tablet (Crestor) TAKE 1 TABLET BY MOUTH EVERY DAY 90 Tablet 3 Losartan Potassium 100 MG Oral Tablet (Cozaar) Take 1 Tablet by mouth in the morning. Lared[place]-3 Fish Oil 1000 MG Oral Capsule (Laredo-3) Take 1 Capsule by mouth in the morning and 1 Capsule before bedtime. Omeprazole 20 MG Oral Capsule Delayed Release (PriLOSEC) TAKE 1 CAPSULE BY MOUTH EVERY DAY 90 Capsule 1 No current facility-administered medications for this visit. [...] Smokeless tobacco: Current Types: Snuff Tobacco comments: 1-08/30 a day Vaping Use Vaping Use: Never [...] Housing Stability: Not on file O:Blood pressure 138/78, pulse 68, temperature 36.7 C (98 F), resp. rate 16, height 1.753 m (5'9"), weight 89.8 kg (198 lb). GENERAL: alert and no distress NECK: supple, no adenopathy, no bruits, thyroid normal size, non-tender, without nodularity EYES: conjunctiva are pink and non-injected, sclera clear HEART: regular rate & rhythm, no murmur, and no gallops LUNGS: chest symmetric with normal AP diameter, no chest deformities noted, no chest wall tenderness, lungs clear to auscultation A:Chronic cough (Primary) - XR CHEST 2 VIEWS - CT CHEST W WO CONTRAST - Fluticasone-Salmeterol 250-50 MCG/ACT Inhalation Aerosol Powder Breath Activated (Advair Diskus);Inhale 1 Puff by mouth in the morning and 1 Puff before bedtime. - SPIROMETRY B/A BRONCHODILATOR; Future; Expected date: 12/04/2023 - Albuterol Sulfate (Proventil) (2.5 MG/3ML) 0.083% inhalation solution 2.5 mg Will xray chest, CT chest. Will get PFT. Try advair. Any questions/problems, please call. If anything changes, worsens, develops new sx, please call [facility]. May need to refer to pulm or allergy. Follow Up: Return if symptoms worsen or fail to improve. Jenifer Ford PA-C documented in this encounter Nursing Notes * Joy Santillan RN - 11/27/2023 1:26 PM EST Acute visit for cough, pt has had this for 3 years, since having covid, he has seen GI for this. Ptstates he coughs so much he will get dizzy and pass out He quit using the zyrtec, mucinex and flonase, states they don't help documented in this encounter Plan of Treatment Upcoming Encounters Date Type Department Care Team (Late st Contact Info) Description 12/06/2023 2:00 PM EST Imaging Radiology [facility] [address] [place] [id number] 12/07/2023 1:00 PM EST PulmDiagnostic Ancillary [address] [place] [address] [place], [address] [place] [address] 04/04/2024 1:40 PM EDT Office Visit Family Medicine [address] [place] [phone] Jayjay Zhong MD [address] [place] [address] [place] [phone] Pending Results Name Type Priority Associated Diagnoses Date /Time XR CHEST 2 VIEWS Medical Imaging Routine Chronic cough 11/27/2023 2:05 PM EST Scheduled Orders Name Type Priority Associated Diagnoses Order Schedule CT CHEST W WO CONTRAST Medical Imaging Routine Chronic cough Ordered: 11/27/2023 SPIROMETRY B/A BRONCHODILATOR Procedures Routine Chronic cough Expected: 12/04/2023, Expires: 12/26/2024 Scheduled Procedures Name Priority Associated Diagnoses Date/Ti me COLONOSCOPY FLEXIBLE PROXIMA L DIAGNOSTIC Recall History of colonic polyps Health Maintenance Due Date Last Done Comments Depression Screening 06/24/2021 06/24/2020 COVID-19 Vaccine ( season) 2023 08/01/2022, 01/17/2022, 02/23/2021, Additional history exists GFR 11/05/2024 11/05/2023, 02/27, 04/05/2022, Additional history exists DTaP,Tdap,and Td Vaccines (4 - Td or Tdap) 08/16/2025 08/16/2015, 03/29/2005, 03/29/2005, Additional history exists Albumin/Creatinine Ratio 03/22/2026 03/22/2023 Diabetes Screening 11/05/2026 11/05/2023, 0 03/22/2023, 04/05/2022, Additional history exists COLONOSCOPY-EVERY 5 YRS AGES 18-100 01/12/2028 01/11/2023, 08/08/2017, 08/08/2017, Additional history exists Lipid Panel 03/22/2028 03/22/2023, 06/05/2022, 05/16/2021, Additional history exists Zoster Vaccines Completed [...] as of this encounter Visit Diagnoses Diagnosis Chronic cough- Primary Cough documented in this encounter Care Teams Bond Analyst Relationship Specialty Start Date End Date Jayjay Zhong MD [address] [place] [address] [place] [phone] PCP - General Family Medicine 08/16/15 documented as of this encounter
--- OUTSIDE RECORDS SUMMARY | 2023-11-30 05:23 | External Medical Summary ---
Author Name Unknown Address Unknown Organization K01:[facility] - [address] [facility] [id number] Laboratory Report Ordering Provider Test Date Status NAZ HOLM 10/25/2023 11:25:42 Rachele l Observation Date Value Abnormality Reference (Units ) Status SARS Coronavirus 2 10/25/2023 11:25:42 Positive Abnormal N egative Final SARS-CoV2 Coronavirus RNA de tected by PCR (amplified probe). Test results reported to [facility].
This express test was developed and its performance characteristics determined by [facility]. It has not been cleared or approved by the U.S. Food and Drug Administration (FDA). FDA does not require this test to go thru premarket FDA review. This test is used for clinical purposes. It should not be regarded as investigational or for research. This laboratory is certified under the Clinical Laboratory Improvement Amendments (CLIA) as qualified to perform high complexity clinical laboratory testing.

This test is a nucleic acid amplification test (NAAT), a reverse transcriptase polymerase chain reaction (RT-PCR) test, or a Centers for Disease Control-acceptable equivalent. The test is performed in a high complexity Clinical Laboratory Improvement Amendments-(CLIA) certified laboratory. The test is acceptable for SARS-CoV-2 diagnosis, surveillance, and travel within the [place] and to most countries. Please check with local testing authorities about requirements before travel.

The validation of bronchial specimens, tracheal aspirates, and sputum for this assay was developed and performance characteristics determined by [facility]. The validation of alternate specimen types has not been cleared or approved by the U.S. Food and Drug Administration (FDA). It has been determined that such clearance is not necessary. Influenza virus A RNA [Prese nce] in Specimen by EMELY with probe detection 10/25/2023 11:25:42 Negative Negative Final No Influenza A RNA detected by PCR (amplified probe) Influenza virus B RNA [Prese nce] in Specimen by EMELY with probe detection 10/25/2023 11:25:42 Negative Negative Final No Influenza B RNA detected by PCR (amplified probe) Respiratory syncytial virus RNA [Identifier] in Specimen by EMELY with probe detection 10/25/2023 11:25:42 Negative Negative Final No Respiratory Syncytial Vir us RNA detected by PCR (amplified probe) Performing Location LABORATORY [place] [address] [address] [facility] [address]
--- OUTSIDE RECORDS SUMMARY | 2023-11-30 05:23 | External Medical Summary | Summary of Care ---
Author Name Unknown Organization [facility] Address [address] [place] [address] Phone [phone] Care Team Providers Care Yard Goods Salesperson Name Role Phone Jayjay Zhong MD Primary Care Provide r Reason for Visit * Reason Onset Date Comments Test Results 10/26/2023 Encounter Details Date Type Department Care Team ([facility] st Contact Info) Description 10/26/2023 Telephone Family Medicine [address] [phone] Joseph Lopes MD [address] [place] [address] [place] [id number] Test Results Allergies No known active [...] mouth in the morning. 0 10/02/2023 Active Hel[place]-3 Fish Oil 1000 MG Oral Capsule (Helena-3) Take 1 Capsule by mouth in the [...] mRNA, LNP-s, No Pre serve, 2-Dose Series ([employer]) 02/23/2021,01/31/2021 COVID-19, LNP-s, No Preserve , Ramón-sucrose, Ages 12+ (Pfizer) 01/17/2022 Covid-19, Mrna, Lnp-s, Pf, B ivalent, 30 Mcg, IM, 12 yrs and above ([employer] Software) 08/01/2022 DTaP Dipth/Tet/Acell Pertussis (Infanrix), Peds 03/29/2005 Pneumococcal Conjugate Vacci ne, 20-valent ([id number]) 07/25/2022 Seasonal Influenza, PF, 6 M & [...] encounter Miscellaneous Notes * Telephone Encounter - Joseph Lopes MD [...] 1:40 PM EDT Office Visit Family Medicine [address] [place] [phone] Jayjay Zhong MD [address] [place] [address] [place] [address] Scheduled Orders Name Type Priority Associated Diagnoses Orde r Schedule COMPREHENSIVE METABOLIC PANEL Lab Routine COVID-19 Expected: 11/02/2023 (Approximate), Expires: 10/25/2024 Scheduled Procedures Name Priority Associated Diagnoses Date/Ti me COLONOSCOPY FLEXIBLE PROXIMA L DIAGNOSTIC Recall History of colonic polyps Health Maintenance Due Date Last Done Comments Depression Screening 06/24/2021 06/24/2020 COVID-19 Vaccine ( - 2022- season) 2023 08/01/2022, 01/17/2022, 02/23/2021, Additional history [...] documented as of this encounter Care Teams Yard Goods Salesperson Relationship Specialty Start Date End Date Jayjay Zhogn MD [address] [place] [address] [place] [phone] PCP - General Family Medicine 08/16/15 documented as of this encounter
--- OUTSIDE RECORDS SUMMARY | 2023-11-30 05:23 | External Medical Summary | Summary of Care ---
Author Name Unknown Organization [facility] Address [address] [place] [address] Phone [phone] Care Team Providers Care Marine Insurance Claim Examiner Name Role Phone Jayjay Zhong MD Primary Care Provide r Reason for Visit * Reason Comments Outpatient Testing Encounter Details Date Type Department Care Team ([facility] st Contact Info) Description 11/05/2023 9:30 AM EST Laboratory Laboratory [address] [place] [phone] [place] [address] COVID-19 Allergies No known active allergiesdocumented as of this encounter (statuses as of 11/05/2023) Medications Medication Sig Dispensed Refills Start Date [...] mouth in the morning. 0 10/02/2023 Active [employer]-3 Fish Oil 1000 MG Oral Capsule ([employer]-3) Take 1 Capsule by mouth in the [...] the morning. 30 Tablet 5 10/26/2023 Active documented as of this encounter (statuses as of 11/05/2023) Active Problems Problem Noted Date Diagnosed Date [...] as of this encounter (statuses as of 11/05/2023) Resolved Problems Problem Noted Date Diagnosed Date [...] as of this encounter (statuses as of 11/05/2023) Immunizations Name Administration Dates Next Due COVID-19 mRNA, LNP-s, No Pre serve, 2-Dose Series ([employer]) 02/23/2021,01/31/2021 COVID-19, LNP-s, No Preserve , Ramón-sucrose, Ages 12+ (Pfizer) 01/17/2022 Covid-19, Mrna, Lnp-s, Pf, B ivalent, 30 Mcg, IM, 12 yrs and above ([employer]) 08/01/2022 DTaP Dipth/Tet/Acell Pertussis (Infanrix), Peds 03/29/2005 Pneumococcal Conjugate Vacci ne, 20-valent ([id number]) 07/25/2022 Seasonal Influenza, PF, 6 M & [...] on file documented as of this encounter Plan of Treatment Upcoming Encounters Date Type Department Care Team (Late st Contact Info) Description 04/04/2024 1:40 PM EDT Office Visit Family Medicine [address] [place] [phone] Jayjay Zhong MD [address] [place] [address] [place] [id number] Pending Results Name Type Priority Associated Diagnoses Date /Time COMPREHENSIVE METABOLIC PANEL Lab Routine COVID-19 11/05/2023 9:29 AM EST Scheduled Procedures Name Priority Associated Diagnoses Date/Ti me COLONOSCOPY FLEXIBLE PROXIMA L DIAGNOSTIC Recall History of colonic polyps Health Maintenance Due Date Last Done Comments Depression Screening 06/24/2021 06/24/2020 COVID-19 Vaccine ( season) 2023 08/01/2022, 01/17/2022, 02/23/2021, Additional history exists GFR 03/22/2024 03/22/2023, 0605/2022, 03/11/2021, Additional history exists DTaP,Tdap,and Td Vaccines [...] as of this encounter Visit Diagnoses Diagnosis COVID-19 documented in this encounter Additional Health Concerns Infection Onset Date Last Indicated Resolved Time COVID-19 (confirmed) 10/25/2023 10/25/2023 documented as of this encounter Care Teams Marine Insurance Claim Examiner Relationship Specialty Start Date End Date Jayjay Zhong MD [address] [place] [address] [place] [phone] PCP - General Family Medicine 08/16/15 documented as of this encounter
--- OUTSIDE RECORDS SUMMARY | 2023-11-30 05:23 | External Medical Summary ---
Author Name Unknown Address Unknown Organization K01:[facility] - [address] [place] [id number] Laboratory Report Ordering Provider Test Date Status NAZ HOLM 11/05/2023 09:29:38 Rachele l Observation Date Value Abnormality Reference (Units ) Status BUN 11/05/2023 09:29:38 14 6-20 (mg/dL) Final Creatinine 11/05/2023 09:29:38 1.0 0.6-1.2 (mg/dL) Final Glomerular filtration rate/1.73 sq M.predicted [Volume Rate/Area] in Serum, Plasma or Blood by Creatinine-based formula (CKD-EPI) 11/05/2023 09:29:38 83 >=60 (mL/min) Final eGFR is calculated based on the CKD-EPI 2020 equation SODIUM 11/05/2023 09:29:38 140 135-146 (m mol/L) Final Potassium 11/05/2023 09:29:38 4.4 3.5-5.1 (m mol/L) Final Cl 11/05/2023 09:29:38 105 98-107 (mm ol/L) Final CO2 11/05/2023 09:29:38 25 22-32 (mmo l/L) Final Anion gap 11/05/2023 09:29:38 10 7-15 (mmol /L) Final Glucose 11/05/2023 09:29:38 108 70-120 (mg /dL) Final Albumin 11/05/2023 09:29:38 4.5 3.8-5.0 (g /dL) Final AST (Aspartate aminotransferase) 11/05/2023 09:29:38 25 10-50 (U/L) Final Alk Phos 11/05/2023 09:29:38 66 35-130 (U/ L) Final Bilirubin, Total 11/05/2023 09:29:38 0.3 <=1 .2 (mg/dL) Final Calcium 11/05/2023 09:29:38 8.7 8.4-10.2 ( mg/dL) Final Protein 11/05/2023 09:29:38 6.8 6.0-8.3 (g /dL) Final ALT (Alanine aminotransferase) 11/05/2023 09:29:38 37 10-50 (U/L) Final Performing Location [facility] - [facility] [address] [facility] [address]
--- OUTSIDE RECORDS SUMMARY | 2023-11-30 05:23 | External Medical Summary | Summary of Care ---
Author Name Unknown Organization [facility] Address [address] [place] [address] Phone [phone] Care Team Providers Care Transit Vehicle Inspector Name Role Phone Jayjay Zhong MD Primary Care Provide r Reason for Visit * Reason Comments Acute Encounter Details Date Type Department Care Team ([facility] st Contact Info) Description 10/25/2023 11:20 AM EST Office Visit Family Medicine [address] [phone] Joseph Lopes MD [address] [place] [address] [place] [address] Suspected COVID-19 virus infection*; Acute cough; Fever, unspecified fever cause Allergies No known active allergiesdocumented as of this encounter (statuses as of 10/25/2023) Medications Medication Sig Dispensed Refills Start Date End Date Status ASPIRIN 81 MG PO TABS one tab by mouth daily 34 5 06/26/2007 Active Multiple Vitamins-Minerals (ICAPS AREDS 2) CAPS Take by mouth. 0 Active Cyanocobalamin 1000 MCG Oral Tablet (Cyanocobalamin)Dahlia cations:B12 deficiency Take by mouth 1 Tablet in the morning. 90 Tablet 1 04/06/2022 Active Tamsulosin HCl 0.4 MG Oral Capsule (Flomax)Indications: Benign prostatic hyperplasia with nocturia Take 2 Capsules by mouth daily with dinner. 180 Capsule 1 05/02/2023 Active DULoxetine HCl 60 MG Oral Capsule Delayed Release Particles (Cymbalta)Indication s:Moderate episode of recurrent major depressive disorder (HCC),DDD (degenerative disc disease), cervical,Chronic midline low back pain without sciatica TAKE 1 CAPSULE BY MOUTH EVERY DAY 90 Capsule 2 05/24/2023 Active Rosuvastatin Calcium 10 MG Oral Tablet (Crestor)Indications :Dyslipidemia, goal LDL below 130 TAKE 1 TABLET BY MOUTH EVERY DAY 90 Tablet 3 06/17/2023 Active Losartan Potassium 100 MG Oral Tablet (Cozaar)Indications: HTN, goal below 140/90 Take 1 Tablet by mouth in the morning. 0 10/02/2023 Active Wichita-3 Fish Oil 1000 MG Oral Capsule (Wichita-3) Take 1 Capsule by mouth in the morning and 1 Capsule before bedtime. 0 10/02/2023 Active Cetirizine HCl 10 MG Oral Tablet (ZyrTEC Allergy)Indications: Postnasal drip Take 1 Tablet by mouth in the morning. 30 Tablet 5 10/02/2023 Active Omeprazole 20 MG Oral Capsule Delayed Release (PriLOSEC) TAKE 1 CAPSULE BY MOUTH EVERY DAY 90 Capsule 1 10/15/2023 Active documented as of this encounter (statuses as of 10/25/2023) Active Problems Problem Noted Date Diagnosed Date [...] as of this encounter (statuses as of 10/25/2023) Resolved Problems Problem Noted Date Diagnosed Date [...] as of this encounter (statuses as of 10/25/2023) Immunizations Name Administration Dates Next Due COVID-19 mRNA, LNP-s, No Pre serve, 2-Dose Series (MetaCDN) 02/23/2021,01/31/2021 COVID-19, LNP-s, No Preserve , Ramón-sucrose, Ages 12+ (Pfizer) 01/17/2022 Covid-19, Mrna, Lnp-s, Pf, B ivalent, 30 Mcg, IM, 12 yrs and above (Pfizer) 08/01/2022 DTaP Dipth/Tet/Acell Pertussis (Infanrix), Peds 03/29/2005 Pneumococcal Conjugate Vacci ne, 20-valent ([id number]) 07/25/2022 Seasonal Influenza, PF, 6 M & [...] Sign Reading Time Taken Comments Blood Pressure 152/88 10/25/2023 11:07 AM EST Pulse 72 10/25/2023 11:07 AM EST Temperature 39.3 C (102.8 F) 10/25/2023 11:07 AM EST Respiratory Rate - - Oxygen Saturation 96% 10/25/2023 11:07 AM EST Inhaled Oxygen Concentration - - Weight 86.6 kg (191 lb) 10/25/2023 11:07 AM EST Height - - Body Mass Index 28.21 10/02/2023 2:50 PM EST documented in this encounter Progress Notes * Joseph Lopes MD - 10/25/2023 11:14 AM EST Subjective: HPI: Kleber Steiner is a 68 year old male with hx of HTN, HLD, Depression, DJD seen for For 3 days pt has been having myalgia, fatigue, chills, cough and nasal congestion - denied any SOB Patient Active Problem List Diagnosis Code Tobacco use disorder F17.200 HTN, goal below 140/90 I10 Cervical disc herniation M50.20 Benign prostatic hyperplasia N40.0 Slow transit constipation K59.01 Midline low back pain without sciatica M54.50 Osteoarthritis of spine with radiculopathy, lumbar region M47.26 Moderate episode of recurrent major depressive disorder (HCC) F33.1 DDD (degenerative disc disease), cervical M50.30 Dyslipidemia, goal LDL below 130 E78.5 Seasonal allergic rhinitis due to pollen J30.1 B12 deficiency E53.8 History of colon polyps Z86.010 Postnasal drip R09.82 Current Outpatient Medications Medication Sig Dispense Refill [...] 1 Tablet by mouth in the morning. Wichita-3 Fish Oil 1000 MG Oral Capsule (Wichita-3) Take 1 Capsule by mouth in the morning and 1 Capsule before bedtime. Cetirizine HCl 10 MG Oral Tablet (ZyrTEC Allergy) Take 1 Tablet by mouth in the morning. 30 Tablet 5 Omeprazole 20 MG Oral Capsule Delayed Release (PriLOSEC) TAKE 1 CAPSULE BY MOUTH EVERY DAY 90 Capsule 1 No current facility-administered medications for this visit. Past Medical History: Diagnosis Date Benign neoplasm of colon 10/2/07 hyperplastic polyps--repeat 10 years BPH (benign prostatic hypertrophy) 04/27/2014 Calculus of kidney Cervical disc herniation 12/29/10 C6-7 disc bulge with right lateral herniation Dermatophytosis of groin Dermatophytosis of nail Tinea corporis Past Surgical History: Procedure Laterality Date COLONOSCOPY W/ BIOPSY (RECTUM) 07/30/2007 hyperplastic polyps--repeat 10 years COLONOSCOPY, DIAGNOSTIC (RECTUM) 08/08/2017 adenomatous polyp, diverticulosis, repeat 5 yrs/COLONOSCOPY FLEXIBLE PROXIMAL DIAGNOSTIC performed by Luis eFrnando Webb MD at ENDOSCOPY [facility] COLONOSCOPY, DIAGNOSTIC (RECTUM) N/A 01/10/2023 biopsies show adenomatous polyps/recall 5 years/Colonoscopy/[place] EGD, FLEXIBLE, DIAGNOSTIC 10/27/2019 normal / [facility] EGD, FLEXIBLE, DIAGNOSTIC N/A 01/11/2023 mild reflux esophagitis/EGD/[place] FRAGMENT KIDNEY STONE BY SHOCK WAVE 1991 INJECT DX/THER SUBSTANCE INTERLAMINAR CERVICAL/THORACIC W IMAGE GUIDE 08/02/2020 INJECTION SPINE LUMBAR CERVICAL OR THORACIC performed by Robert Sampson DO at OR [facility] REMOVAL OF TONSILS, UNDER AGE 12 Review of patient's allergies indicates: No Known Allergies Family History Problem Relation Age of Onset Cancer Mother breast Other (Parkinsons) Mother Heart Disorder Father Social History Tobacco Use Smoking status: Never Smokeless tobacco: Current Types: Snuff Tobacco comments: a day Substance Use Topics Alcohol use: Yes Comment: several beers per day Vaping/E-Cigarette Use Vaping/E-Cigarette Use Never User Vaping/E-Cigarette Substances Vaping/E-Cigarette Devices ROS: -Per HPI OBJECTIVE: BP 152/88 | Pulse 72 | Temp (!) 39.3 C (102.8 F) (Tympanic) | Wt 86.6 kg (191 lb) | SpO2 96% | BMI 28.21 kg/m | BSA 2.05 m PHYSICAL EXAM: Lungs: CTA, no wheezing or crackles ASSESSMENT/PLAN: Recommended mucinex, flonase BID - pt is okay with paxlovid if COVID + ---- vaccinated against covid Suspected COVID-19 virus infection (Primary) - INFLUENZA A/B RSV SARS-COV2,PCR; Future; Expected date: 10/25/2023 - INFLUENZA A/B RSV SARS-COV2,PCR Acute cough - INFLUENZA A/B RSV SARS-COV2,PCR; Future; Expected date: 10/25/2023 - INFLUENZA A/B RSV SARS-COV2,PCR Fever, unspecified fever cause - INFLUENZA A/B RSV SARS-COV2,PCR; Future; Expected date: 10/25/2023 - INFLUENZA A/B RSV SARS-COV2,PCR Joseph Lopes MD Family medicine, [address] [address] documented in this encounter Nursing Notes * Didi Darby LPN - 10/25/2023 11:08 AM EST Sick for almost 3 days Flu symptoms Body, teeth, headaches Mucous Fever documented in this encounter Plan of Treatment Upcoming Encounters Date Type Department Care Team (Late st Contact Info) Description 04/04/2024 1:40 PM EDT Office Visit Family Medicine [address] [phone] Jayjay Zhong MD [address] [place] [address] [place] [address] Scheduled Orders Name Type Priority Associated Diagnoses Orde r Schedule INFLUENZA A/B RSV SARS-COV2,PCR Lab Routine Suspected COVID-19 virus infection Acute cough Fever, unspecified fever cause Expected: 10/25/2023 (Approximate), Expires: 10/24/2024 Scheduled Procedures Name Priority Associated Diagnoses Date/Ti [...] as of this encounter Visit Diagnoses Diagnosis Suspected COVID-19 virus infection- Primary Acute cough Fever, unspecified fever cause documented in this encounter Care Teams Transit Vehicle Inspector Relationship Specialty Start Date End Date Jayjay Zhong MD [address] [place] [address] [place] [phone] PCP - General Family Medicine 08/16/15 documented as of this encounter"
--- OUTSIDE RECORDS SUMMARY | 2023-11-30 05:24 | External Medical Summary | Summary of Care ---
Author Name Unknown Organization [facility] Address [address] [place] [address] Phone [phone] Care Team Providers Care Green Plumber Name Role Phone Jayjay Zhong MD Primary Care Provide r Reason for Visit * Reason Comments eRx-Medication Refill Encounter Details Date Type Department Care Team Description 06/16/2023 Refill Family Medicine [address] [phone] Jayjay Zhong MD [address] [place] [address] [place] [address] Dyslipidemia, goal LDL below 130; HTN, goal below 140/90 Allergies No known active allergiesdocumented as of this encounter (statuses as of 06/17/2023) Medications Medication Sig Dispensed Refills Start Date [...] 12/30/2021 Active Cyanocobalamin 1000 MCG Oral Tablet (Cyanocobalamin)I ndications:B12 deficiency Take by mouth 1 Tablet in the morning. 90 Tablet 1 04/06/2022 Active Azelastine HCl 137 MCG/SPRAY Nasal SolutionIndicatio ns:Seasonal allergic rhinitis due to pollen Administer 2 Sprays into each nostril in the morning. 30 mL 5 04/02/2023 Active linaCLOtide 145 MCG Oral Capsule (Linzess)Indicati ons:Slow transit constipation Take 1 Capsule by mouth daily before breakfast. 90 Capsule 1 04/02/2023 Active Terbinafine HCl 250 MG Oral TabletIndications :Onychomycosis Take 1 Tablet by mouth in the morning. for toenail fungus. 84 Tablet 0 04/02/2023 06/25/20 23 Active Tamsulosin HCl 0.4 MG Oral Capsule [...] Oral Tablet (Cozaar)Indicatio ns:HTN, goal below 140/90 TAKE 1/2 TABLET BY MOUTH EVERY DAY 45 Tablet 3 06/17/2023 Active Rosuvastatin Calcium 10 MG Oral Tablet (Crestor)Indicati ons:Dyslipidemia, goal LDL below 130 TAKE 1 TABLET BY MOUTH EVERY DAY 90 Tablet 0 03/19/2023 06/17/20 23 Discontinued Losartan Potassium 100 MG Oral Tablet (Cozaar)Indicatio ns:HTN, goal below 140/90 Take 1 Tablet by mouth in the morning. 90 Tablet 1 04/02/2023 06/17/20 23 Discontinued documented as of this encounter (statuses as of 06/17/2023) Active Problems Problem Noted Date Postnasal drip 04/02/2023 History of colon polyps 07/12/2022 B12 deficiency 04/06/2022 Seasonal allergic rhinitis due to pollen 03/11/2021 DDD (degenerative disc disease), cervica l 09/23/2019 Dyslipidemia, goal LDL below 130 019 Osteoarthritis of spine with radiculopat hy, lumbar region 08/03/2017 Moderate episode of recurrent major depr essive disorder 08/03/2017 Slow transit constipation 08/16/2015 Midline low back pain without sciatica 1 Benign prostatic hyperplasia 04/27/2014 Overview: ICD-10 update of inactive term HTN, goal below 140/90 04/19/2011 Cervical disc herniation 12/29/2010 Overview: C6-7 disc bulge with right lateral herniation Tobacco use disorder 02/19/2002 documented as of this encounter (statuses as of 06/17/2023) Resolved Problems Problem Noted Date Resolved Date High blood triglycerides 04/13/2013 017 Cervicalgia 07/26/2011 08/16/2015 Benign neoplasm of colon 07/30/2007 022 Overview: hyperplastic polyps--repeat 10 years Dermatophytosis of groin 05/19/2002 015 ADJ DISORDER W/DEPRES MOOD 02/19/200208/03 DERMATOPHYTOSIS OF LEFT THUMB 02/19/2002 Dermatophytosis of foot 02/19/2002 08/03/20 17 Dermatophytosis of nail 02/19/2002 08/03/20 17 Tinea corporis 02/19/2002 08/16/2015 Calculus of kidney 12/25/2019 documented as of this encounter (statuses as of 06/17/2023) Immunizations Name Administration Dates Next Due COVID-19 mRNA, LNP-s, No Pre serve, 2-Dose Series (SlideRocket) 02/23/2021,01/31/2021 COVID-19, LNP-s, No Preserve , Ramón-sucrose, Ages 12+ (SlideRocket) 01/17/2022 Covid-19, Mrna, Lnp-s, Pf, B ivalent, 30 Mcg, IM, 12 yrs and above (SlideRocket) 08/01/2022 DTaP - Dipth/Tet/Acell Pertussis 03/29/2005 Pneumococcal Conjugate Vacci ne, 20-valent ([id number]) 07/25/2022 Seasonal Influenza, PF, 6 mo ns & Above, IM , (Flulaval) 08/29/2019,10/07/2018,08/03/2017 Seasonal Influenza, Quadriva lent Hd (Fluzone Hd) 07/25/2022 Seasonal Influenza, Quadriva lent, No Preserve, IM 06/25/2021,08/14/2016,08/16/2015 Seasonal Influenza, Split, I IV3, With Preserve, Inj 09/30/2014,10/15/2013,07/24/2012,2010,08/19/2010,07/28/2009 TDAP (age 10 and older)(Boostrix) 08/16/2015 TDAP (age 11 and older)(Adacel) 03/29/2005 Varicella Zoster Vaccine (Adult) 12/05/2016 Zoster Vaccine Recombinant (Shingrix) 04/27/2020 ,12/25/2019 documented as of this encounter Social History Tobacco Use Types Packs/Day Years Used Date Smoking Tobacco: Never Smokeless Tobacco: Current Snuff Comments:1-/2 a day Alcohol Use Standard Drinks/Week Comments Yes 0 (1 standard drink = 0.6 oz pur e alcohol) several beers per day Sex Assigned at Date Recorded Not on file Job Start Date Occupation Industry Not on file Not on file Not on file documented as of this encounter Miscellaneous Notes * Telephone Encounter - Erika Kasper RPh - 06/17/2023 9:15 AM EDTSigned Prescriptions: Disp Refills Rosuvastatin Calcium 10 MG Oral Tablet (Cr*90 Tab*3 Sig: TAKE 1 TABLET BY MOUTH EVERY DAYAuthorizing Provider: FIONA RODRIGUES User: ERIKA KASPER Losartan Potassium 100 MG Oral Tablet (Coz*45 Tab*3 Sig: TAKE 1/2 TABLET BY MOUTH EVERY DAYAuthorizing Provider: FIONA RODRIGUES User: ERIKA KASPER documented in this encounter Plan of Treatment Upcoming Encounters Date Type Specialty Care Team Description 10/02/2023 Office Visit Family Medicine Jenifer Ford PA-C [address] [place] [address] [place] [phone] 04/04/2024 Office Visit Family Medicine Jayjay Zhong MD [address] [place] [address] [place] [phone] Scheduled Procedures Name Priority Associated Diagnoses Date/Ti me COLONOSCOPY FLEXIBLE PROXIMA L DIAGNOSTIC Recall History of colonic polyps Health Maintenance Due Date Last Done Comments Depression Screening, Annual for Pts 12 and Over 06/24/2021 06/24/2020 Influenza Vaccine (FLU shot) (#1) 2023 07/25/2022, 06/25/2021, 09/02/2020, Additional history exists GFR 03/22/2024 03/22/2023, 06/0 [...] 12/05/2016 Pneumococcal Vaccine: 65+ Years Completed 07/25/2022 COVID-19 Vaccine Completed 08/01/2022, , 02/23/2021, Additional history exists GARDASIL-HPV IMMUNIZATION SERIES Aged [...] as of this encounter Visit Diagnoses Diagnosis Dyslipidemia, goal LDL below 130 Other and unspecified hyperlipidemia HTN, goal below 140/90 Unspecified essential hypertension documented in this encounter Care Teams Green Plumber Relationship Specialty Start Date End Date Jayjay Zhong MD [address] [place] [address] [place] [address] PCP - General Family Medicine 08/16/15 documented as of this encounter
[2023-11-30 06:34] LABS: Hematocrit (blood only) 42.9 % (42.0-52.0); Hemoglobin 14.6 g/dl (14.0-18.0); Mean Corpuscular Hemoglobin 31.1 pg (25.0-34.0); Mean Corpuscular Volume 91.3 fL (80.0-100.0); Platelet Count 215 K/uL (130-400); RDW Coefficient of Variation 12.6 % (11.5-14.5); RDW Standard Deviation 41.9 fL (36.4-46.3); White Blood Count 7.08 K/ul (4.8-10.8)
--- NOTE | 2023-11-30 06:47 | Ultrasound Report ---
BILATERAL CAROTID DOPPLER STUDY HISTORY: syncope COMPARISON: None. TECHNIQUE: Real-time, grayscale, and color Doppler sonography of the carotid arteries was performed. Imaging reviewed in the transverse and longitudinal planes. All measurements were calculated based on NASCET criteria. FINDINGS: Antegrade flow is seen in the bilateral vertebral arteries. The right vertebral artery is hypoplastic. The peak systolic velocity within the right ICA is 69 cm/s. The right systolic ratio is 0.8. The peak systolic velocity within the left ICA is 62 cm/s. The left systolic ratio is 0.9. IMPRESSION: No hemodynamically significant stenosis seen within the carotid arteries. ACT 112: Negative or not required by law. Electronically signed by: Alton Bose M.D. 11/30/2023 6:45 AM
[2023-11-30 07:03] LABS: BUN Creatinine Ratio 16.1 (10-20); Creatinine Clr Calc Pharmacy 78.9 ml/min; Est GFR (African American) 98.1 ml/min; Est GFR (Non-African American) 84.6 ml/min; Magnesium 1.9 mg/dl (1.7-2.4); Phosphorus 3.5 mg/dl (2.5-4.9); Potassium 3.7 mmol/L (3.5-5.1)
[2023-11-30] MEDS: BENZONATATE 100 MG CAPSULE PO SCH (09:07)
[2023-11-30] MEDS: CHOLECALCIFEROL 25 MCG (1000 UNITS) TAB PO SCH (09:07)
[2023-11-30] MEDS: CETIRIZINE HCL 10 MG TABLET PO SCH (09:07)
[2023-11-30] MEDS: CYANOCOBALAMIN (B-12) 500 MCG TABLET PO SCH (09:08)
[2023-11-30] MEDS: FLUTICASONE PROPIONATE NA SPR 16 GM BTL SCH ×2 (09:08→20:38)
[2023-11-30] MEDS: FLUTICASONE/VILANTEROL 100/25MCG 14 PUFFS/INHALER INH SCH (09:09)
[2023-11-30] MEDS: LOSARTAN POTASSIUM 50 MG TAB PO SCH (09:09)
[2023-11-30] MEDS: PANTOprazole 40 MG TAB PO SCH ×2 (09:09→20:39)
[2023-11-30] MEDS: CEROVITE ADV FORMULA TAB PO SCH (09:09)
[2023-11-30] MEDS: ROSUVASTATIN CALCIUM 10 MG TAB PO SCH (09:09)
[2023-11-30] MEDS: ASPIRIN 81 MG ECTAB PO SCH (10:33)
[2023-11-30] MEDS ORDERED: LORazepam 0.25 MG in SYRINGE 0.125 ML IV STA (10:43)
--- NOTE | 2023-11-30 14:27 | Fluoroscopy Report ---
DOUBLE CONTRAST BARIUM ESOPHAGRAM CLINICAL HISTORY: Dysphagia. Chronic cough. COMPARISON STUDY: No prior. TECHNIQUE: A standard air contrast barium esophagram is performed. Multiple spot images of the esopha augie are acquired both upright and prone. FINDINGS: The patient swallowed barium without difficulty. The patient could not swallow a barium pil l. The mucosal pattern is normal. There is no evidence of intrinsic or extrinsic mass lesion. No aspi ration was seen. The gastroesophageal junction distended normally. There is moderate esophageal dysm otility. Gastroesophageal reflux was observed during the examination. Fluoroscopy time: 1.13 minutes. Ka,r: 39.2 mGy Fluoroscopic images: 13 spot images and 2 cine loops IMPRESSION: 1. Esophageal dysmotility. 2. Gastroesophageal reflux was observed. 3. The patient could not swallow the barium pill. ACT 112: Negative or not required by law. Electronically signed by: Ashvin Aguayo M.D. 11/30/2023 2:26 PM
--- NOTE | 2023-11-30 15:52 | Psychiatric Consultation ---
Date of Consultation November 30, 2023 Impression / Recommendations Impression 68 y/o man with a history of depression and anxiety that he reports as having been well-controlled on duloxetine that he stopped abruptly a week ago for reasons that he now thinks were poor. Pt thinks he shouldn't have stopped the duloxetine. He's probably right. He does not present significant suicide risk, though he often feels negative and frustrated and at times makes statements that indicate more suicidal thinking than he actually has. Overall I spent a total of 39 minutes on the floor for this consultation assessment including review of chart records, review of test results, direct evaluation of the patient [id number], counseling the patient, medication education with the patient, risk assessment, discussion with the psychiatric liaison nurse, and documentation in the electronic health record. (1) Depression: (2) Anxiety: Plan * pt does not require suicide precautions or 1:1 observation * pt would likley benefit from resuming duloxetine 60 mg daily (no titration needed) * pt would be appropriate for outpatient follow-up and does not require psychiatric hospitalization Psych History Identifying Data KLEBER OCONNOR is a 68-year-old M with a history of depression, admitted on 11/29/2023 for syncope. Consult is by the hospitalist service for "stopped cymbalta last week. increasing depression". Chief Complaint "I've just got this cough and I get lightheaded". History of Present Illness As part of a thorough review of the available medical records, I have read and incorporated into my assessment the following note by the ED physician: "68-year-old male presents emergency department for syncope. Patient reports that he has been having a bad cough and he has been coughing so bad since Sunday he has passed out 3 times. He reports some chest tightness and some difficulty breathing. Patient states he thinks his symptoms began after he was diagnosed with COVID in September. No recent travel. No exogenous hormone usage. No hemoptysis. No headache. No nausea vomiting or diarrhea. No melena or hematochezia. No hematuria or dysuria." the following note by the hospitalist: "Pt is a 68yoM with PMHx significant for HTN, HLD, BPH, Vit 12 def, DDD, MDD, Allergic rhinitis presenting with syncopal episodes after coughing fits. Hx obtained from the patient. Pt states that his symptoms started 3 years ago when he got covid. States that he has had a chronic cough and sensation in his throat that has been worked up in the past, but with no definite diagnosis. He states that he had covid again last month. Notes that the coughing fits caused him to pass out on [place] and most recently on Nov 25 (Sunday). States that he was sitting at the dinner table with his when he started coughing and felt dizzy. States he felt his lower extremities all get numb before losing consciousness for a few minutes. States that episode was witnessed by his . Denies a smoking Hx but does note that he chews tobacco and has done so for about 50 years. Did see his pcp recently a few days ago and was started on an Advair inhaler, and sent for PFTs and CT chest which he states is scheduled but not completed yet. States that he "does not feel right in the head". States that he has had "2 cameras down my throat and they have not been able to find anything". Notes that he has a HX of GERD and that it is not controlled. States that his chest gets "hot" when he eats something "saucy" and tight. Notes he gets COON, states that he cannot walk 10 feet without getting SOB. States that he would like to know what is going on. Per ED provider, pt requesting admission for further evaluation." and the following note by the psychiatric liaison nurse: "Patient resting in bed, at bedside and supportive. Patient has a blunted affect, but brightened upon interaction. Patient reports being prescribed Cymbalta (by PCP) for at least 1 year, for depression. He reports stopping it about 5 days ago when he chose to not pick it up at the pharmacy d/t cost and "I already take 4 or 5 pills". He admits to worsening sleep issues after stopping Cymbalta, as well as low energy/low motivation. He typically is a "go getter", always doing something but not lately. He reports depressed mood and his physical ailments have made it worse. He reports having passive SI, "I just don't want to live this way anymore. I could never kill myself though". He denies plan or intent, he denies history of attempts. He reports having a .22 gun "incase someone breaks in or if I need to shoot a skunk". He and deny any concerns regarding safety, including the firearms. He has had no inpatient treatment." Review of the medical record reveals no previous or outside psychiatric records. Pt says he was treated for depression and anxiety with duloxetine "for years". Pt says he'd been treated with duloxetine 60 mg for so long that he hardly remembers why he was taking it. That's one of the reasons he decided to stop it (without a taper) a week ago. Other reasons include cost, though he now realizes that it costs him about $35 for a 90-day supply, and feeling as if he's "on so many medications" ("4 or 5 other things"). He denies any side effects while on it. Since stopping he's "felt kind of weird", though he's not sure he'd really say he's depressed, and thinks "maybe I shouldn't have stopped it". His , who was present throughout, reminded him that he's seemed much more anxious without it. I trust the report from the psychiatric liaison nurse quoted above, but pt minimizes any "actual" suicidal thoughts and says "I just get so frustrated at times that I say stuff". His does not think he's suicidal. He reports little recent change in sleep, appetite, interest, or motivation. His energy has been low. Denies anhedonia. Past Psychiatric History Outpatient Services: none currently Previous Psych Admissions: none Do You Have Access To A Gun?: Yes Allergies Allergy/AdvReac Type Severity Reaction Status Date / Time No Known Allergies Allergy Verified 01/11/23 09:26 Home Medications Medication Instructions Recorded Confirmed Type aspirin 81 mg tablet,delayed 81 mg PO QAM 09/22/19 11/29/23 History release vitamins A,C,G-pajs-ioahcv 4,296 2 cap PO QAM 09/22/19 11/29/23 History mcg-226 mg-90 mg capsule (PreserVision AREDS) losartan 100 mg tablet (Cozaar) 100 mg PO QAM 01/01/21 11/29/23 History cholecalciferol (vitamin D3) 25 25 mcg PO QAM 01/05/23 11/29/23 History mcg (1,000 unit) capsule (Vitamin D3) cyanocobalamin (vitamin B-12) 50 1,000 mcg PO QAM 01/05/23 11/29/23 History mcg tablet (Vitamin B-12) omega-3 fatty acids 1,250 mg PO QAM 01/05/23 11/29/23 History rosuvastatin 10 mg tablet 10 mg PO QAM 01/05/23 11/29/23 History tamsulosin 0.4 mg capsule 0.8 mg PO HS 01/05/23 11/29/23 History omeprazole 20 mg capsule,delayed 20 mg PO DAILY #90 caps 01/11/23 11/29/23 Rx release cetirizine 10 mg tablet 10 mg PO QAM 11/29/23 11/29/23 History fluticasone 250 mcg-salmeterol 50 1 inh inhalation [facility] 11/29/23 11/29/23 History mcg/dose blistr powdr for inhalation Patient History Medical History (Updated 11/30/23 @ 16:11 by Cristina Coe MD) History of COVID-19 11/2020, test q-care, not hosp; "couldn't get off the couch,">resolved w/exception of mucous in throat all the time History of anesthesia reaction questionable malignant hpyerthermia was told cousin had coded and revived and was told it might be malignant hyperthermia and family did not have testing. patient has had anesthesia and has not had any problems. Last procedure was with [facility] Herniated cervical disc ROM "up and down is ok, but turning side to side is difficult" Osteoarthritis GERD (gastroesophageal reflux disease) Depression Anxiety Hypertension Kidney stone hx-LITHOTRIPSY Surgical History Hx of lithotripsy Hx of colonoscopy Hx of tonsillectomy Family History Other No significant family history Social History Smoking Status: Never smoker Tobacco Type: Smokeless Tobacco (Dip or Chew) Second Hand Exposure: No; Do You Dip or Chew Tobacco: Yes; Tobacco Cessation Education Requested by Patient: Yes Hx Alcohol Use: Yes Alcohol type: beer Hx Substance Use: No Preferred Language: Tajik Communication Ability: Effective Network Contractor Required: No Beliefs That Will Affect Care: None Current Living Situation: Spouse Current Living Situation Comment: With Diana Feels Safe at Home: Yes Safety Concerns: Feels Safe At This Time Assistive Devices: None Physical Exam Psychiatric: Orientation: alert, oriented to person, oriented to place, oriented to time and cooperative Apperance: appropriately dressed and appropriately groomed Eye Contact: + fair eye contact Motor Behavior: steady gait and station (was up looking out his window on approach) and no abnormal motor movements Speech: normal rate/rhythm/volume of speech Affect: + constricted affect Mood: + depressed mood and + anxious mood Thought Process: linear/logical thought process and thought association intact Thought Content: reality based without delusions; no hopelessness and no worthlessness Suicidal Thoughts: denies suicidal thoughts, denies suicidal plan and denies suicidal intent Homicidal Thoughts: denies homicidal thoughts Hallucinations: no auditory hallucinations and no visual hallucinations Estimated Intelligence: consistent with education level Insight: + fair insight Judgment: + fair judgement Vital Signs (Past 24 Hours): Last Vital Signs Temp 36.5 C 11/30/23 15:12 Pulse 78 11/30/23 15:40 Resp 18 11/30/23 15:12 BP 133/81 11/30/23 15:12 Pulse Ox 96 11/30/23 15:12 O2 Del Method Room Air 11/30/23 15:12 Exam Statement: Physical exams were performed in the ED and by the admitting hospitalist for the purposes of medical clearance. I accept those physicals as correct and adequate and have incorporated that information into my assessment. Review of Systems Psychiatric: + depression and + anxiety; no hopelessness, no suicidal ideation, no paranoia and no hallucinations Results & Data (PSY) Medications Administered Aspirin (Aspirin 81 Mg Ectab) [facility] Stop: 12/30/23 08:59 Last Admin: 11/30/23 10:33 Dose: 81 mg Documented By: SUJATA Cetirizine HCl (Cetirizine Hcl 10 Mg Tablet) [facility] Stop: 12/30/23 08:59 Last Admin: 11/30/23 09:07 Dose: 10 mg Documented By: SUJATA Cyanocobalamin (Cyanocobalamin (B-12) 500 Mcg Tablet) 1,000 mcg [facility] Stop: 12/30/23 08:59 Last Admin: 11/30/23 09:08 Dose: 1,000 mcg Documented By: SUJATA Enoxaparin Sodium (Enoxaparin Inj 40 Mg/0.4 Ml Syr) 40 mg SQ Q24H [facility] Stop: 12/29/23 20:59 Last Admin: 11/29/23 22:09 Dose: 40 mg Documented By: KAREN Fluticasone Propionate (Fluticasone Propionate Na Spr 16 Gm Btl) 2 sprays NA BID [facility] Stop: 12/29/23 20:59 Last Admin: 11/30/23 09:08 Dose: 2 sprays Documented By: Admin: 11/29/23 22:07 Dose: 2 sprays Documented By: KAREN Fluticasone/Vilanterol (Fluticasone/Vilanterol 100/25mcg 14 Puffs/Inhaler) [address] [facility] Stop: 12/30/23 08:59 Last Admin: 11/30/23 09:09 Dose: 1 puffs Documented By: SUJATA Losartan Potassium (Losartan Potassium 50 Mg Tab) [address] [facility] Stop: 12/30/23 08:59 Last Admin: 11/30/23 09:09 Dose: 100 mg Documented By: SUJATA Multivitamins/Minerals (Cerovite Adv Formula Tab) [address] [facility] Stop: 12/30/23 08:59 Last Admin: 11/30/23 09:09 Dose: 1 tab Documented By: SUJATA Pantoprazole Sodium (Pantoprazole 40 Mg Tab) 40 mg PO BID [facility] Stop: 12/29/23 20:59 Last Admin: 11/30/23 09:09 Dose: 40 mg Documented By: Admin: 11/29/23 22:08 Dose: 40 mg Documented By: KAREN Rosuvastatin Calcium (Rosuvastatin Calcium 10 Mg Tab) [address] [facility] Stop: 12/30/23 08:59 Last Admin: 11/30/23 09:09 Dose: 10 mg Documented By: SUJATA Vitamin D (Cholecalciferol 25 Mcg (1000 Units) Tab) [address] [facility] Stop: 12/30/23 08:59 Last Admin: 11/30/23 09:07 Dose: 25 mcg Documented By: SUJATA Coding Level of Care Code 05037 U Intl Hosp Care Lvl 2 Diagnoses Depression F32.9 Anxiety F41.9 Time Spent (min) 39
--- NOTE | 2023-11-30 16:01 | Hospitalist Progress Note ---
Date of Service November 30, 2023 Assessment & Plan (1) Syncope: Plan: Cough syncope History of chronic cough for the last 3 years following COVID-19 virus infection Recurrent syncope has been happening following a bouts of cough No cardiac or neurological symptoms prior to symptom No arrhythmia Echo of the heart showed-2 mild concentric LVH, left ventricular wall motion is normal, left medical systolic function is normal, EF 60 to 65%, grade 1 diastolic dysfunction and there is no significant valvular disease So far neurological workup have been negative Has been getting Hycodan as a cough suppressant Will monitor Will get PT and OT evaluation (2) Chronic cough: Plan: Chronic Cough Pt states that he has had a chronic cough that progresses to coughing fits since he had covid 3 years ago States that after he has a fit, he gets dizzy and has had 2 syncopal episodes as a result Chest XRAY with no acute changes, noted calcified granulomas Chest CTA with PE protocol pending [employer] -negative Started on flonase scheduled for postnasal drip as possible cause of chronic cough Hx of allergic rhinitis, continue home advair inhaler and cetirizine. Consider addition of singulair Hold home omeprazole, started on pantoprazole 40mg BID for uncontrolled GERD as another potential cause. Pt is scheduled to have outpt PFTs completed, nonsmoker but chews tobacco. Possible asthma/RAD vs COPD. Consider pulmonology follow up. Continue with as needed Hycodan syrup ordered for acute symptomatic treatment of cough (3) Dysphagia: Plan: History of dysphagia Failed bedside swallowing Barium study showed-esophageal dysmotility, gastroesophageal reflux was observed and the patient could not swallow the barium pill. Will follow the speech recommendation for diet May need GI/neuro evaluation (4) Dizziness: (5) Anxiety: Plan: Significant history of anxiety and depression Will get a psych evaluation to adjust medication if needed (6) Depression: Plan Pt is a 68yoM with PMHx significant for HTN, HLD, BPH, Vit 12 def, DDD, MDD, Allergic rhinitis presenting with syncopal episodes after coughing fits. Continue other home meds as ordered Diet: HH DVT prophylaxis: Lovenox SQ CODE STATUS: Full code Dispo: PCU/tele Admission and Anticipated Discharge Date Admission Date: November 29, 2023 Subjective 11/30/2023 Patient was seen and examined in telemetry unit He was admitted with chronic cough with recent recurrent episodes of syncope with cough Loss of consciousness for a few minute when he was very pale as per the Denies any neurosymptoms or any cardiac symptoms prior to the syncope except cough Has been feeling much better this morning Review of Systems Review of Systems: All systems reviewed and are unremarkable except as noted below Respiratory: Chronic cough for the last 3 years following COVID-19 virus infection. Physical Exam Physical Exam: Lying in bed comfortably Constitutional: well developed, well nourished and + obese; not ill appearing Eyes: PERRL, conjunctivae normal, anicteric sclerae ENMT: external ear and nose normal, oropharynx normal Neck: trachea midline, no thyromegaly Respiratory: no respiratory distress Auscultation: lungs clear to auscultation bilaterally Cardiovascular: Rate/Rhythm: regular rate and regular rhythm; not tachycardic Heart Sounds: normal S1 and normal S2; no murmur Extremities: no edema Gastrointestinal (Abdomen): Inspection/Auscultation: normal bowel sounds; abdomen not distended Percussion/Palpation: abdomen soft; abdomen nontender Musculoskeletal: No acute arthritis involving any of the joint Neurologic: normal touch/pain/proprioception and moves all extremities; no focal motor deficits Lymphatic: no cervical or axillary lymphadenopathy Results & Data Results & Data Vital Signs (Past 12 Hours) Vital Signs Temp Pulse Pulse Pulse Resp BP BP 11/30/23 15:40 78 11/30/23 15:12 36.5 C 85 18 133/81 11/30/23 12:00 36.6 C 81 18 129/80 11/30/23 11:59 36.7 C 74 21 134/80 11/30/23 10:09 65 11/30/23 09:03 36.2 C L 75 17 117/70 Pulse Ox O2 Del Method 11/30/23 15:40 11/30/23 15:12 96 Room Air 11/30/23 12:00 97 Room Air 11/30/23 11:59 94 Room Air 11/30/23 10:09 11/30/23 09:03 95 Room Air Laboratory Results Short CBC 11/30/23 Range/Units 05:28 WBC 7.08 (4.8-10.8) K/ul Hgb 14.6 (14.0-18.0) g/dl Hct 42.9 (42.0-52.0) % Plt Count 215 (130-400) K/uL BMP 11/30/23 05:28 Sodium 137 Potassium 3.7 Chloride 106 Carbon Dioxide 23 BUN 15 Creatinine 0.93 Glucose 89 Calcium 9.0 Medications Administered Current Inpatient Medications Acetaminophen (Acetaminophen 500 Mg Tab) 1,000 mg PO Q8H PRN PRN Reason: Pain or Fever Stop: 12/29/23 21:00 Aspirin (Aspirin 81 Mg Ectab) 81 mg PO [facility] Stop: 12/30/23 08:59 Last Admin: 11/30/23 10:33 Dose: 81 mg Cetirizine HCl (Cetirizine Hcl 10 Mg Tablet) 10 mg PO [facility] Stop: 12/30/23 08:59 Last Admin: 11/30/23 09:07 Dose: 10 mg Cyanocobalamin (Cyanocobalamin (B-12) 500 Mcg Tablet) 1,000 mcg PO [facility] Stop: 12/30/23 08:59 Last Admin: 11/30/23 09:08 Dose: 1,000 mcg Enoxaparin Sodium (Enoxaparin Inj 40 Mg/0.4 Ml Syr) 40 mg SQ Q24H [facility] Stop: 12/29/23 20:59 Last Admin: 11/29/23 22:09 Dose: 40 mg Fluticasone Propionate (Fluticasone Propionate Na Spr 16 Gm Btl) 2 sprays NA BID [facility] Stop: 12/29/23 20:59 Last Admin: 11/30/23 09:08 Dose: 2 sprays Fluticasone/Vilanterol (Fluticasone/Vilanterol 100/25mcg 14 Puffs/Inhaler) 1 puffs INH [facility] Stop: 12/30/23 08:59 Last Admin: 11/30/23 09:09 Dose: 1 puffs Hydrocodone Bit/Homatropine Methylb (Hydrocodone/Homatropine Syrup 5mg/1.5mg 5ml Udp) 5 ml PO Q6H PRN PRN Reason: Cough Stop: 12/13/23 20:55 Losartan Potassium (Losartan Potassium 50 Mg Tab) 100 mg PO [facility] Stop: 12/30/23 08:59 Last Admin: 11/30/23 09:09 Dose: 100 mg Multivitamins/Minerals (Cerovite Adv Formula Tab) [facility] Stop: 12/30/23 08:59 Last Admin: 11/30/23 09:09 Dose: 1 tab Ondansetron HCl (Ondansetron Inj 2 Mg/Ml 2 Ml Vial) 4 mg IV Q6H PRN PRN Reason: Nausea And Vomiting Stop: 12/29/23 21:00 Pantoprazole Sodium (Pantoprazole 40 Mg Tab) 40 mg PO BID [facility] Stop: 12/29/23 20:59 Last Admin: 11/30/23 09:09 Dose: 40 mg Polyethylene Glycol (Polyethylene (Miralax) 17 Gm Pack) 17 gm PO DAILY PRN PRN Reason: Constipation Stop: 12/29/23 21:01 Rosuvastatin Calcium (Rosuvastatin Calcium 10 Mg Tab) 10 mg PO [facility] Stop: 12/30/23 08:59 Last Admin: 11/30/23 09:09 Dose: 10 mg Vitamin D (Cholecalciferol 25 Mcg (1000 Units) Tab) 25 mcg PO [facility] Stop: 12/30/23 08:59 Last Admin: 11/30/23 09:07 Dose: 25 mcg (1) Syncope Syncope type: unspecified Qualified Code(s): R55 - Syncope and collapse
[2023-11-30] MEDS ORDERED: GADOBUTROL 65ML VIAL IV ONE (17:51)
--- NOTE | 2023-11-30 18:23 | Magnetic Resonance Report ---
MR brain wo/w con CLINICAL HISTORY: syncope TECHNIQUE: Multiplanar and multisequence MR images of the brain were obtained prior to and following administration of gadolinium contrast. Comparison: None available at the time of this dictation. FINDINGS: No abnormal restricted diffusion is identified. The white matter is unremarkable. The ventricular sys tem is normal in appearance. No mass or abnormal enhancement is seen. There is no mass effect or midl ine shift. There is no evidence of acute intraparenchymal hemorrhage. No extra axial fluid collection s are seen. The corpus callosum, pituitary gland, and cerebellar tonsils appear grossly unremarkable. Flow voids of the major intracranial arterial vessels are identified. The imaged portions of the para nasal sinuses, mastoid air cells, and orbits are unremarkable. IMPRESSION: No acute abnormalities. ACT 112: Negative or not required by law. Electronically signed by: Edison Rick M.D. 11/30/2023 6:21 PM
[2023-11-30] MEDS: ENOXAPARIN INJ 40 MG/0.4 ML SYR SQ SCH (20:39)
[2023-12-01 06:14] LABS: Anion Gap 7 (3-11); BUN Creatinine Ratio 16.5 (10-20); Blood Urea Nitrogen 18 mg/dl (6-23); Calcium 8.8 mg/dl (8.6-10.3); Carbon Dioxide 23 mmol/L (21-32); Chloride 107 mmol/L (98-107); Creatinine Clr Calc Pharmacy 67.3 ml/min; Est GFR (Non-African American) 69.9 ml/min; Glucose 88 mg/dl (70-99(Fasting)); Sodium 137 mmol/L (136-145)
[2023-12-01 06:56] LABS: Basophils # (auto) 0.05 K/uL (0.00-0.20); Basophils % (auto) 0.8 %; Eosinophils # (auto) 0.13 K/uL (0.00-0.50); Eosinophils % (auto) 2.2 %; Immature Granulocytes # (auto) 0.02 K/uL (0.01-0.20); Immature Granulocytes % (auto) 0.3 %; Lymphocytes # (auto) 1.75 K/uL (1.20-3.40); Lymphocytes % (auto) 29.2 %; Mean Corpuscular Hgb Conc 34.1 g/dL (32.0-36.0); Mean Corpuscular Volume 90.9 fL (80.0-100.0); Mean Platelet Volume 9.6 fL (9.4-12.4); Monocytes # (auto) 0.57 K/uL (0.11-0.59); Monocytes % (auto) 9.5 %; Neutrophils # (auto) 3.47 K/uL (1.40-6.50); Platelet Count 203 K/uL (130-400); RDW Coefficient of Variation 12.6 % (11.5-14.5); Red Blood Count 4.84 M/uL (4.70-6.10); White Blood Count 5.99 K/ul (4.8-10.8)
[2023-12-01] MEDS: PANTOprazole 40 MG TAB PO SCH (08:52)
[2023-12-01] MEDS: CYANOCOBALAMIN (B-12) 500 MCG TABLET PO SCH (08:52)
[2023-12-01] MEDS: CHOLECALCIFEROL 25 MCG (1000 UNITS) TAB PO SCH (08:53)
[2023-12-01] MEDS: CETIRIZINE HCL 10 MG TABLET PO SCH (08:53)
[2023-12-01] MEDS: CEROVITE ADV FORMULA TAB PO SCH (08:53)
[2023-12-01] MEDS: LOSARTAN POTASSIUM 50 MG TAB PO SCH (08:53)
[2023-12-01] MEDS: ROSUVASTATIN CALCIUM 10 MG TAB PO SCH (08:53)
[2023-12-01] MEDS: ASPIRIN 81 MG ECTAB PO SCH (08:53)
[2023-12-01] MEDS: FLUTICASONE/VILANTEROL 100/25MCG 14 PUFFS/INHALER INH SCH (08:53)
[2023-12-01] MEDS: FLUTICASONE PROPIONATE NA SPR 16 GM BTL SCH (08:54)
[2023-12-01] MEDS ORDERED: NICOTINE 14 MG/24 HR PATCH TD SCH (10:30)
--- NOTE | 2023-12-01 11:41 | Hospitalist Progress Note ---
Date of Service December 01, 2023 Assessment & Plan (1) Syncope: Plan: Cough syncope History of chronic cough for the last 3 years following COVID-19 virus infection Recurrent syncope has been happening following a bouts of cough No cardiac or neurological symptoms prior to symptom No arrhythmia Echo of the heart showed-2 mild concentric LVH, left ventricular wall motion is normal, left medical systolic function is normal, EF 60 to 65%, grade 1 diastolic dysfunction and there is no significant valvular disease So far neurological workup have been negative Has been getting Hycodan as a cough suppressant Will monitor Will get PT and OT evaluation-appreciate input and recommendation to go home No more syncope and the cough is seems to be improved Will be going home this afternoon He will need to have an appointment with outpatient neurologist-especially for his concern of having Parkinson disease and early dementia and possible nerve damage from COVID infection 3 years back since he is having this problem with cough (2) Chronic cough: Plan: Chronic Cough Pt states that he has had a chronic cough that progresses to coughing fits since he had covid 3 years ago States that after he has a fit, he gets dizzy and has had 2 syncopal episodes as a result Chest XRAY with no acute changes, noted calcified granulomas Chest CTA with PE protocol pending Biofire -negative Started on flonase scheduled for postnasal drip as possible cause of chronic cough Hx of allergic rhinitis, continue home advair inhaler and cetirizine. Consider addition of singulair Hold home omeprazole, started on pantoprazole 40mg BID for uncontrolled GERD as another potential cause. Pt is scheduled to have outpt PFTs completed, nonsmoker but chews tobacco. Possible asthma/RAD vs COPD. Consider pulmonology follow up. Continue with as needed Hycodan syrup ordered for acute symptomatic treatment of cough Will give Hycodan for the next few days (3) Dysphagia: Plan: History of dysphagia Failed bedside swallowing Barium study showed-esophageal dysmotility, gastroesophageal reflux was observed and the patient could not swallow the barium pill. Will follow the speech recommendation for diet May need GI/neuro evaluation Has been tolerating diet without any evidence of aspiration Strongly advised to follow the recommendation from the speech therapist Strongly advised to take more time during eating and specialists consulted on swallowing (4) Dizziness: (5) Anxiety: Plan: Significant history of anxiety and depression Will get a psych evaluation to adjust medication if needed (6) Depression: Plan: Appreciate psychiatric input and recommendation Will continue with his home medication Plan Pt is a 68yoM with PMHx significant for HTN, HLD, BPH, Vit 12 def, DDD, MDD, Allergic rhinitis presenting with syncopal episodes after coughing fits. Continue other home meds as ordered Diet: HH DVT prophylaxis: Lovenox SQ CODE STATUS: Full code Dispo: PCU/tele Admission and Anticipated Discharge Date Admission Date: November 29, 2023 Subjective 11/30/2023 Patient was seen and examined in telemetry unit He was admitted with chronic cough with recent recurrent episodes of syncope with cough Loss of consciousness for a few minute when he was very pale as per the Denies any neurosymptoms or any cardiac symptoms prior to the syncope except cough Has been feeling much better this morning 12/01/2023 The patient was seen and examined in telemetry unit He has been feeling much better and has been tolerating diet even though barium swallow showed esophageal dysmotility and could not take that barium pill He wants to go home He will have lunch and advised to ambulate in the hallway to make sure he is steady his feet before discharge this afternoon Review of Systems Review of Systems: All systems reviewed and are unremarkable except as noted below Respiratory: Chronic cough for the last 3 years following COVID-19 virus infection. Physical Exam Physical Exam: Lying in bed comfortably Constitutional: well developed, well nourished and + obese; not ill appearing Eyes: PERRL, conjunctivae normal, anicteric sclerae ENMT: external ear and nose normal, oropharynx normal Neck: trachea midline, no thyromegaly Respiratory: no respiratory distress Auscultation: lungs clear to auscultation bilaterally Cardiovascular: Rate/Rhythm: regular rate and regular rhythm; not tachycardic Heart Sounds: normal S1 and normal S2; no murmur Extremities: no edema Gastrointestinal (Abdomen): Inspection/Auscultation: normal bowel sounds; abdomen not distended Percussion/Palpation: abdomen soft; abdomen nontender Musculoskeletal: No acute arthritis involving any of the joint Neurologic: normal touch/pain/proprioception and moves all extremities; no focal motor deficits Lymphatic: no cervical or axillary lymphadenopathy Results & Data Results & Data Vital Signs (Past 12 Hours) Vital Signs Temp Pulse Resp BP Pulse Ox O2 Del Method 12/01/23 10:51 36.3 C L Room Air 02/03/24 08:14 36.7 C 75 17 122/79 96 Room Air 12/01/23 08:00 Room Air 12/01/23 03:12 36.5 C 72 18 144/66 H 95 Room Air Laboratory Results Short CBC 12/01/23 12/01/23 Range/Units 05:26 06:39 WBC Cancelled 5.99 Hgb Cancelled 15.0 Hct Cancelled 44.0 Plt Count Cancelled 203 BMP 12/01/23 12/01/23 05:26 06:39 Sodium 137 Potassium TNP 4.1 Chloride 107 Carbon Dioxide 23 BUN 18 Creatinine 1.09 Glucose 88 Calcium 8.8 Medications Administered Current Inpatient Medications Acetaminophen (Acetaminophen 500 Mg Tab) 1,000 mg PO Q8H PRN PRN Reason: Pain or Fever Stop: 12/29/23 21:00 Aspirin (Aspirin 81 Mg Ectab) 81 mg PO [facility] Stop: 12/30/23 08:59 Last Admin: 12/01/23 08:53 Dose: 81 mg Cetirizine HCl (Cetirizine Hcl 10 Mg Tablet) 10 mg PO [facility] Stop: 12/30/23 08:59 Last Admin: 12/01/23 08:53 Dose: 10 mg Cyanocobalamin (Cyanocobalamin (B-12) 500 Mcg Tablet) 1,000 mcg PO [facility] Stop: 12/30/23 08:59 Last Admin: 12/01/23 08:52 Dose: 1,000 mcg Enoxaparin Sodium (Enoxaparin Inj 40 Mg/0.4 Ml Syr) 40 mg SQ Q24H [facility] Stop: 12/29/23 20:59 Last Admin: 11/30/23 20:39 Dose: 40 mg Fluticasone Propionate (Fluticasone Propionate Na Spr 16 Gm Btl) 2 sprays NA BID [facility] Stop: 12/29/23 20:59 Last Admin: 12/01/23 08:54 Dose: 2 sprays Fluticasone/Vilanterol (Fluticasone/Vilanterol 100/25mcg 14 Puffs/Inhaler) 1 puffs INH [facility] Stop: 12/30/23 08:59 Last Admin: 12/01/23 08:53 Dose: 1 puffs Hydrocodone Bit/Homatropine Methylb (Hydrocodone/Homatropine Syrup 5mg/1.5mg 5ml Udp) 5 ml PO Q6H PRN PRN Reason: Cough Stop: 12/13/23 20:55 Last Admin: 12/01/23 10:15 Dose: 5 ml Losartan Potassium (Losartan Potassium 50 Mg Tab) 100 mg PO [facility] Stop: 12/30/23 08:59 Last Admin: 12/01/23 08:53 Dose: 100 mg Miscellaneous (Remove Nicoderm Patch) 1 each N/A DAILY@0859 [facility] Stop: 01/01/24 08:58 Multivitamins/Minerals (Cerovite Adv Formula Tab) 1 tab PO [facility] Stop: 12/30/23 08:59 Last Admin: 12/01/23 08:53 Dose: 1 tab Nicotine (Nicotine 14 Mg/24 Hr Patch) 14 mg TD [facility] Stop: 12/31/23 10:29 Ondansetron HCl (Ondansetron Inj 2 Mg/Ml 2 Ml Vial) 4 mg IV Q6H PRN PRN Reason: Nausea And Vomiting Stop: 12/29/23 21:00 Pantoprazole Sodium (Pantoprazole 40 Mg Tab) 40 mg PO BID [facility] Stop: 12/29/23 20:59 Last Admin: 12/01/23 08:52 Dose: 40 mg Polyethylene Glycol (Polyethylene (Miralax) 17 Gm Pack) 17 gm PO DAILY PRN PRN Reason: Constipation Stop: 12/29/23 21:01 Rosuvastatin Calcium (Rosuvastatin Calcium 10 Mg Tab) 10 mg PO [facility] Stop: 12/30/23 08:59 Last Admin: 12/01/23 08:53 Dose: 10 mg Vitamin D (Cholecalciferol 25 Mcg (1000 Units) Tab) [facility] Stop: 12/30/23 08:59 Last Admin: 12/01/23 08:53 Dose: 25 mcg (1) Syncope Syncope type: unspecified Qualified Code(s): R55 - Syncope and collapse
[2023-12-01] MEDS ORDERED: DULoxetine HCL 60 MG CAP PO SCH (13:45)
[2023-12-01] MEDS ORDERED: LORazepam 1 MG/1 ML SYR ED Inj Use IV STA (13:46)
--- NOTE | 2023-12-01 16:36 | Discharge Summary ---
Date of Service December 01, 2023 Admission HPI Per Admitting Provider Pt is a 68yoM with PMHx significant for HTN, HLD, BPH, Vit 12 def, DDD, MDD, Allergic rhinitis presenting with syncopal episodes after coughing fits. Hx obtained from the patient. Pt states that his symptoms started 3 years ago when he got covid. States that he has had a chronic cough and sensation in his throat that has been worked up in the past, but with no definite diagnosis. He states that he had covid again last month. Notes that the coughing fits caused him to pass out on Nadiya and most recently on Nov 25 (Sunday). States that he was sitting at the dinner table with his when he started coughing and felt dizzy. States he felt his lower extremities all get numb before losing consciousness for a few minutes. States that episode was witnessed by his . Denies a smoking Hx but does note that he chews tobacco and has done so for about 50 years. Did see his pcp recently a few days ago and was started on an Advair inhaler, and sent for PFTs and CT chest which he states is scheduled but not completed yet. States that he "does not feel right in the head". States that he has had "2 cameras down my throat and they have not been able to find anything". Notes that he has a HX of GERD and that it is not controlled. States that his chest gets "hot" when he eats something "saucy" and tight. Notes he gets COON, states that he cannot walk 10 feet without getting SOB. States that he would like to know what is going on. Per ED provider, pt requesting admission for further evaluation. Admission Exam Per Admitting Provider Physical Exam: General: Alert, oriented. No acute distress Skin: No noted rashes or bruises Psych: Appropriate mood and affect Neuro: No gross deficits HEENT: NC/AT Chest: Nontender to palpation. CV: RRR, Normal s1, s2. No murmurs appreciated Resp: Breath sounds clear bilaterally, no increased effort of breathing. No crackles/rhonchi/rales. Abdomen: Soft, nontender, nondistended. Extremities: No edema in lower extremities bilaterally. Principal Diagnosis Cough syncope, chronic cough, esophageal dysmotility Discharge Exam Lying in bed comfortably Constitutional well developed, well nourished and + obese; not ill appearing Eyes PERRL, conjunctivae normal, anicteric sclerae ENMT external ear and nose normal, oropharynx normal Neck trachea midline, no thyromegaly Respiratory no respiratory distress Auscultation: lungs clear to auscultation bilaterally Cardiovascular Rate/Rhythm: regular rate and regular rhythm; not tachycardic Heart Sounds: normal S1 and normal S2; no murmur Extremities: no edema Gastrointestinal (Abdomen) Inspection/Auscultation: normal bowel sounds; abdomen not distended Percussion/Palpation: abdomen soft; abdomen nontender Neurologic normal touch/pain/proprioception and moves all extremities; no focal motor deficits Lymphatic no cervical or axillary lymphadenopathy Discharge Data Allergies Allergy/AdvReac Type Severity Reaction Status Date / Time No Known Allergies Allergy Verified 01/11/23 09:26 Consultations 11/29/23 17:36 ED Decision to Admit Stat 11/30/23 09:00 Consult Psychiatry Routine Ordered Studies 11/29/23 13:16 CT head/brain wo con Stat 11/29/23 20:56 CT angio chest PE protocol Urgent 11/30/23 US carotid doppler BI Routine 11/30/23 00:36 MR brain wo/w con Urgent 11/30/23 11:15 FL barium swallow Routine Hospital Course (1) Syncope: Cough syncope History of chronic cough for the last 3 years following COVID-19 virus infection Recurrent syncope has been happening following a bouts of cough No cardiac or neurological symptoms prior to symptom No arrhythmia Echo of the heart showed-2 mild concentric LVH, left ventricular wall motion is normal, left medical systolic function is normal, EF 60 to 65%, grade 1 diastolic dysfunction and there is no significant valvular disease So far neurological workup have been negative Has been getting Hycodan as a cough suppressant Will monitor Will get PT and OT evaluation-appreciate input and recommendation to go home No more syncope and the cough is seems to be improved Will be going home this afternoon He will need to have an appointment with outpatient neurologist-especially for his concern of having Parkinson disease and early dementia and possible nerve damage from COVID infection 3 years back since he is having this problem with cough (2) Chronic cough: Chronic Cough Pt states that he has had a chronic cough that progresses to coughing fits since he had covid 3 years ago States that after he has a fit, he gets dizzy and has had 2 syncopal episodes as a result Chest XRAY with no acute changes, noted calcified granulomas Chest CTA with PE protocol pending Biofire -negative Started on flonase scheduled for postnasal drip as possible cause of chronic cough Hx of allergic rhinitis, continue home advair inhaler and cetirizine. Consider addition of singulair Hold home omeprazole, started on pantoprazole 40mg BID for uncontrolled GERD as another potential cause. Pt is scheduled to have outpt PFTs completed, nonsmoker but chews tobacco. Possible asthma/RAD vs COPD. Consider pulmonology follow up. Continue with as needed Hycodan syrup ordered for acute symptomatic treatment of cough Will give Hycodan for the next few days (3) Dysphagia: History of dysphagia Failed bedside swallowing Barium study showed-esophageal dysmotility, gastroesophageal reflux was observed and the patient could not swallow the barium pill. Will follow the speech recommendation for diet May need GI/neuro evaluation Has been tolerating diet without any evidence of aspiration Strongly advised to follow the recommendation from the speech therapist Strongly advised to take more time during eating and specialists consulted on swallowing (4) Dizziness: (5) Anxiety: Significant history of anxiety and depression Will get a psych evaluation to adjust medication if needed (6) Depression: Appreciate psychiatric input and recommendation Will continue with his home medication Plan Pt is a 68yoM with PMHx significant for HTN, HLD, BPH, Vit 12 def, DDD, MDD, Allergic rhinitis presenting with syncopal episodes after coughing fits. Continue other home meds as ordered Diet: HH DVT prophylaxis: Lovenox SQ CODE STATUS: Full code Dispo: PCU/tele Total Time Total Time Spent Total Time Spent (In Minutes): 35 minutes Discharge Plan Discharge Items Patient Disposition: Home - Self-Care Reason For Visit: SYNCOPE Discharge Diagnosis: Cough syncope, chronic cough, esophageal dysmotility Condition on Discharge: Good Activity: Resume your previous activity Non-emergency contact: Primary Care Provider Call non-emergency contact if: you have any medication questions and your symptoms worsen Follow-up/Referrals: Jayjay Zhong MD [Primary Care Provider] - (Your doctor's office will call you with an appointment within 7 days) Diet: Regular Diet Comment: Aspiration precautions,alternate solids and liquids,upright with meals +30m Addtl Attending Provider Instructions: Please take precautions to avoid falls Stop smoking Concentrate while swallowing/eating as above Please get an appointment with a neurologist through your PCP You need to see a city editor as an outpatient to0 for your problem with swallowing Pending Studies at Discharge: No Stand-Alone Forms: [facility], Smoking Cessation Medications and DC Order Prescriptions: New pantoprazole 40 mg Tablet,Delayed Release (Dr/Ec) 40 mg PO BID Qty: 60 0RF hydrocodone-homatropine [Hydromet] 5-1.5 mg/5 mL Syrup 5 ml PO Q6H PRN (Reason: cough) Qty: 100 0RF duloxetine 60 mg Capsule,Delayed Release(Dr/Ec) 60 mg PO QAM Qty: 30 0RF nicotine 14 mg/24 hr patch 24 hour 1 patch transdermal DAILY Qty: 28 0RF Continued aspirin 81 mg Tablet,Delayed Release (Dr/Ec) 81 mg PO QAM Rx Instructions: unable to verify with pharmacy 11/29/23 PreserVision AREDS [id number] Capsule 2 cap PO QAM Rx Instructions: unable to verify with pharmacy 11/29/23 Vitamin B-12 50 mcg Tablet 1,000 mcg PO QAM tamsulosin 0.4 mg Capsule 0.8 mg PO HS cholecalciferol (vitamin D3) [Vitamin D3] 25 mcg (1,000 unit) Capsule 25 mcg PO QAM Rx Instructions: unable to verify with pharmacy 11/29/23 omega-3 fatty acids Capsule 1,250 mg PO QAM Rx Instructions: unable to verify with pharmacy 11/29/23 rosuvastatin 10 mg Tablet 10 mg PO QAM losartan [Cozaar] 100 mg tablet 100 mg PO QAM fluticasone propion-salmeterol 250-50 mcg/dose blister with device 1 inh INHALATION [facility] cetirizine 10 mg tablet 10 mg PO QAM Discontinued omeprazole 20 mg capsule,delayed release(DR/EC) 20 mg PO DAILY Qty: 90 3RF Discharge Orders: Discharge Order (Routine); Ordered 12/01/23 Ordered By: Cristina Coe Admission Data Admit Date/Time: 11/29/23 18:56 Attending Provider: Cristina Coe Admit Provider: Azul Hoskins Primary Care Provider: Jayjay Zhong Other Providers: Deepa Forbes; Babs Artis; Elena Montaño; Damian Orellana; Alex Sharma; Yohannes Humphreys Jr; Azul Hoskins Other Interventions: Discharge Summary Assessment (RN) Last Done: 12/01/23 14:04
== END 2023-12-01 14:43 | disposition home or self-care (01) | DRG 312 ==
LOC: ED 12:29 → SUATTDRO 18:56 → 2S 18:56